=== PATIENT | male | born 1955 | race Caucasian/White ===

== ENCOUNTER 2018-01-06 08:33 | Day surgery (SDC) | payer BC, OTHER ==
[2018-01-06] MEDS ORDERED: CEFAZOLIN/SWI 1gm 1 GM/10 ML SYR ONE (08:57)
[2018-01-06] MEDS ORDERED: NA CHLORIDE 0.9% 1,000 ML ONE (08:57)
[2018-01-06 09:07] LABS: Absolute Lymphocytes (CBC) 1.3 K/uL (0.7-4.9); Absolute Monocytes 1.7 K/uL (0.1-1.3); Absolute Neutrophil 8.1 K/uL (1.8-8.0); Basophils % 0.3 % (0-1.3); Eosinophils % 0.3 % (0-4.4); Hematocrit 44.9 % (39.6-49.0); Lymphocytes % 11.9 % (15.3-44.8); MCV 99.5 fL (80-100); MPV 8.1 fL (7.6-11.3); Monocytes % 15.4 % (3.3-12.3); Potassium 4.4 mmol/L (3.5-5.1); RBC Red Blood Cell Count 4.51 M/uL (4.33-5.43)
--- NOTE | 2018-01-06 09:07 | RAD REPORT ---
EXAM DESCRIPTION: RAD - Chest Pa And Lat (2 Views) - 01/06/2018 8:59 am CLINICAL HISTORY: pre op Chest pain. COMPARISON: CHEST PA AND LAT 2 VIEW dated 04/12/2008 FINDINGS: The lungs are clear. The heart is normal in size. No displaced fractures. IMPRESSION: No acute or concerning finding suspected.
[2018-01-06] MEDS ORDERED: PROPOFOL 200 MG/20 ML VIAL IV ONE (09:35)
[2018-01-06] MEDS ORDERED: FENTANYL CITR 100 MCG/2 ML ONE ×3 (09:36→10:18)
[2018-01-06] MEDS ORDERED: MIDAZOLAM HCL 2 MG/2 ML INJ ONE (09:36)
[2018-01-06] MEDS ORDERED: LIDOCAINE 2% MPF 5 ML VIAL ONE (09:36)
[2018-01-06] MEDS ORDERED: BUPIVACAINE 0.5% PF 10 ML VIAL ONE (09:54)
[2018-01-06] MEDS ORDERED: ONDANSETRON HCL 40 MG/20 ML VIAL ONE (10:18)
--- NOTE | 2018-01-06 10:43 | P.BOP ---
Preoperative diagnosis: cellulitis. large abscess post neck infected subQ mass, DM Postoperative diagnosis: same Primary procedure: excisional bx of infected subQ mass with large abscess [id number] Estimated blood loss: <10cc Specimen: culture, devitalized tissue Findings: complex abscess Anesthesia: General Transferred to: Recovery Room Condition: Good
--- NOTE | 2018-01-06 11:00 | EKG ---
Test Date: 2018-01-06 Test Time: 09:01:49 Entertainment Director: IKE MEASUREMENT RESULTS: Intervals: Rate: 97 GA: 150 QRSD: 96 QT: 330 QTc: 419 [place]: P: 12 GA: 150 QRS: 25 T: 47 INTERPRETIVE STATEMENTS: Normal sinus rhythm Normal ECG Compared to ECG 04/12/2008 17:02:55 No significant changes Electronically Signed On 01-06-18 10:59:55 CDT by Deniz Yates
--- NOTE | 2018-01-06 15:46 | OP ---
Date of Procedure: 01/06/2018 Surgeon: Julien Moran MD Preoperative Diagnoses: Cellulitis large abscess posterior neck infected subcutaneous mass, diabetes mellitus, morbid obesity. Postoperative Diagnoses: Cellulitis large abscess posterior neck infected subcutaneous mass, diabete s mellitus, morbid obesity. Procedures: Excisional biopsy of infected subcutaneous mass with incision and drainage of a large ab scess, 10 x 3 x 3 cm. Estimated Blood Loss: Less than 10 cc. Specimen: Culture and devitalized tissue. Finding: Complex abscess. Anesthesia: General plus local. Indications: This is a case of a 62-year-old patient, with an infected large posterior neck area in des with what he thinks was a small cyst in the middle of subcutaneous mass. They came into a lar ge area of fluctuance and cellulitis, deep and tender. The patient fully explained the need for exci sional biopsy of that subcutaneous mass with drainage of this large abscess with benefits, alternativ es, and risks including, but not limited to infection, bleeding, damage to adjacent structures, anest hesia complication, nonhealing wound, OH, and even . He also understands this may not relieve a ny symptoms. He might need more than one surgical intervention. He understands the importance of be ing compliant with antibiotics and dressing changes. He was offered to use home health agencies, but his believes she can do dressing changes. He understands the importance of compliance also wit h diabetes control. He signed a consent. Description Of Procedure: The patient was brought to the operating room, placed in supine position. Anesthesia was done without complication. The patient was placed in lateral decubitus position with proper protection. We have an area of subcutaneous mass right in the skin area, which starting to d rain purulent discharge. We removed that area and that led us into a complex abscess deep inside abo ut 3 cm deep just above the muscle on the posterior neck. It tracked medial. We opened all the locu lations, drained the pus, removed the devitalized tissue. The area was profusely irrigated. Hemosta sis obtained. Local anesthesia was applied, and the area was packed with iodoform quarter of an inch . The patient tolerated the procedure well. The patient was sent to Recovery in stable condition. KENDAL/ANGELITA Voice ID: [id number] Report ID: [id number]
--- NOTE | 2018-01-06 15:46 | DS ---
Date of Discharge: 01/06/2018 Diagnoses: Cellulitis and large abscess with a posterior neck infected subcutaneous mass, diabetes. Procedures: Excision biopsy of infected subcutaneous mass with incision and drainage of a large absc ess. Disposition: Home. Activity: As tolerated. No heavy lifting. Followup: Follow up in my office in 1 week. Call for appointment, but also we encouraged the patien t to come tomorrow to my office to help him in dressing changes if he wants to. Medications: Include Cipro 500 p.o. q.12, Bactrim DS p.o. b.i.d., Vicodin q.4 hours p.r.n. pain, nor mal saline. Discharge Instructions: The patient may take a shower with dressings off tomorrow. TERESA Voice ID: [id number] Report ID: [id number]
== END 2018-01-06 12:12 | disposition home or self-care (01) ==
LOC: OR 08:33
PROVIDERS: ATTEND Surgery
PROC: 0J940ZZ Drainage of Right Neck Subcutaneous Tissue and Fascia, Open Approach (ICD-10-PCS; 2018-01-06)
PROC: 0JB40ZZ Excision of Right Neck Subcutaneous Tissue and Fascia, Open Approach (ICD-10-PCS; principal; 2018-01-06 09:00)
DX: L02.11 Cutaneous abscess of neck (principal); L03.221 Cellulitis of neck; R22.1 Localized swelling, mass and lump, neck; E11.9 Type 2 diabetes mellitus without complications; E66.01 Morbid (severe) obesity due to excess calories; Z68.33 Body mass index [BMI] 33.0-33.9, adult; I10 Essential (primary) hypertension; G47.33 Obstructive sleep apnea (adult) (pediatric)
CPT/HCPCS: 36415; 71046; 80048; 82962; 85025; 87070; 87075; 87077; 87186; 87205; 88304; 93005; J0690; J2250; J2405; J3010; J7030

== ENCOUNTER 2019-04-19 12:13 | Inpatient (IN) | payer OTHER ==
[2019-04-19 12:57] VITALS: BMI 32.3
[2019-04-19] MEDS ORDERED: D50W 25 GM/50 ML SYRINGE/VIAL IV PRN (13:05)
[2019-04-19] MEDS ORDERED: GLUCAGON 1 MG/VIAL IM PRN (13:05)
[2019-04-19 13:11] LABS: Absolute Lymphocytes (CBC) 1.7 K/uL (0.7-4.9); Basophils % 0.7 % (0-1.3); Hematocrit 45.5 % (39.6-49.0); Lymphocytes % 28.7 % (15.3-44.8); MPV 8.4 fL (7.6-11.3); RBC Red Blood Cell Count 4.57 M/uL (4.33-5.43)
[2019-04-19 13:29] LABS: Albumin 3.7 g/dL (3.4-5.0); Bilirubin Total 0.8 mg/dL (0.2-1.0); Potassium 3.9 mmol/L (3.5-5.1); Protein, Total 7.5 g/dL (6.4-8.2)
--- NOTE | 2019-04-19 13:36 | RAD REPORT ---
EXAM DESCRIPTION: RAD - Foot Right 2 View - 04/19/2019 1:27 pm CLINICAL HISTORY: wound Soft tissue wound COMPARISON: No comparisons FINDINGS: Soft tissue swelling is seen along the lateral aspect of the forefoot. No subcutaneous gas is seen. No radiographic finding to indicate osteomyelitis at this time. Large calcaneal spurs.
[2019-04-19] MEDS ORDERED: VANCOMYCIN 2 GM in NA CHLORIDE 0.9% 500 ML IVPB ONE (14:00)
[2019-04-19 15:32] LABS: Urine Appearance CLEAR; Urine Bilirubin NEGATIVE (NEG); Urine Blood NEGATIVE (NEG); Urine Color YELLOW; Urine Glucose 3+ (NEG); Urine Protein NEGATIVE (NEG); Urine Specific Gravity >=1.030 (1.005-1.030); Urine Urobilinogen 0.2 mg/dL (0.2-1.0)
[2019-04-19 15:39] LABS: Urine Bacteria NONE SEEN /HPF (NONE SEEN); Urine Culture Reflex Order NOT NEEDED; Urine RBC NONE SEEN /HPF (NONE SEEN)
[2019-04-19] MEDS ORDERED: CHLORHEXIDINE GLUCO 4% 120 ML TOP SCH (16:00)
[2019-04-19] MEDS: INSULIN -REGULAR HUMAN 50 UNIT/0.5 ML ML SQ SCH ×2 (17:52→20:09)
--- NOTE | 2019-04-19 20:05 | CON ---
Date of Consultation: 04/19/2019 Reason For Consultation: Infected wound, right foot. History Of Present Illness: Patient is a 64-year-old gentleman, who presents with approximately 24 t o 36 hour history of a blister on the right lateral foot. He states that he was wearing a boot yeste rday when his foot was a little swollen and then we took it off 4 to 5 hours later and noticed that noé carter developing, and even saw Dr. Gibson and he was admitted for IV antibiotics as he is a diabetic and high risk for infection. Workup was begun and I was consulted. He is awake, alert. He does hav e diabetic neuropathy. No fever or chills and no purulent discharge. Review of Systems: Otherwise unremarkable. Past Medical History: Significant for diabetes and hypertension. Past Surgical History: Posterior neck incision and drainage of abscess, shoulder surgery, both knee surgery. Allergies: INCLUDE POISON FEROZ. Social History: He denies smoking or drinking. Family History: Significant for coronary artery disease. Physical Examination: Vital Signs: Stable. He is currently afebrile. General: He is awake, alert, and oriented x3. Head and Neck: Cranial nerves 2 through 12 grossly within normal limits. No neck mass. No JVD. Th roat clear. Neck is supple. Chest: Clear. Heart: S1, S2. Abdomen: Soft. Extremities: Palpable dorsalis pedis and posterior tibial pulses. Right foot is slightly edematous. There is surrounding erythema to this approximately 2 cm area of a purulent blister. There is call us on the plantar aspect of the foot. It does not appear involved. Procedure Note: Under sterile conditions, an 11 blade used to unroof the blister. Pus evacuated. C ultures done. The dermis appeared to be intact. There was some ecchymosis underneath it. However, there is no induration and no fluctuance. Assessment: Infected wound, right foot. Recommendations: Patient is a diabetic. I agree with IV vancomycin. We will check the cultures. A djust antibiotics accordingly. [place] local wound care. We will follow him up in the office in c ouple of weeks. His white count is normal. His sugar is 186, therefore he is clinically not septic nor does he require prolonged IV antibiotic therapy at this time. Obviously if his wound worsen, we would make different recommendation, probably longer period of IV antibiotics, but at this time the p atient needs no further surgical intervention. /MODL Voice ID: [id number] Report ID: [id number]
[2019-04-19] MEDS: carvediloL 12.5 MG TAB PO SCH (20:06)
[2019-04-19] MEDS: MUPIROCIN 2% OINT 22GM TUBE TOP SCH (20:06)
[2019-04-19] MEDS ORDERED: HYDROCODONE/APAP 5/325 MG TAB PO PRN (20:26)
[2019-04-19] MEDS ORDERED: ZOLPIDEM TARTRATE 5 MG TABLET PO PRN (20:26)
[2019-04-19] MEDS ORDERED: ATORVASTATIN 10 MG TAB PO SCH (21:00)
[2019-04-20 00:48] VITALS: TEMP 97
[2019-04-20] MEDS ORDERED: VANCOMYCIN 2 GM in NA CHLORIDE 0.9% 500 ML IVPB SCH (02:00)
--- NOTE | 2019-04-20 02:22 | HP ---
Date of Admission: 04/19/2019 Chief Complaint: Pain, swelling, redness of right foot. History Of Present Illness: A 64-year-old male who is a known diabetic on insulin, was brought to [facility] office because of pain, swelling, and redness of the right foot. He was found to have evidence of cellulitis with necrotic and bullous center. In view of his diabetes, the patient is admitted for IV antibiotic therapy. The patient denied any history of trauma. The patient however had evidence of callus of the sole of the foot. Past Medical History: Positive for type 2 diabetes requiring insulin, hypertension, hyperlipidemia, depression, and panic attacks. Family History: Positive for diabetes and hypertension and stroke. Personal History: Currently nonsmoker. Allergies: NO KNOWN DRUG ALLERGIES. Past Surgical History: Positive for knee arthroscopy and debridement of neck. Review of Systems: No chest pain or shortness of breath. Home Medicines: Please refer to the chart. Physical Examination: General: Revealed a 64-year-old male, obese. Vital Signs: Normal. HEENT: Negative. Neck: Supple. JVD negative. Chest: Clear. Heart: Regular. Abdomen: Soft. Extremities: Diffuse area of redness of the right foot with central necrosis and bolus formation. P edal pulse is present. Laboratory Data: White count normal. X-ray of the foot, no evidence of osteomyelitis. Assessment: 1.Diabetic foot infection, right foot. 2.Type 2 diabetes, requiring insulin. 3.Hypertension. 4.Hyperlipidemia. 5.History of anxiety and depression. Plan: The patient is started on a regular medication IV vancomycin. Surgical consult has been done. MAKAYLA/ANGELITA Voice ID: [id number]
[2019-04-20] MEDS ORDERED: GLIMEPIRIDE 2 MG TABLET PO SCH (08:00)
[2019-04-20] MEDS: carvediloL 12.5 MG TAB PO SCH (08:15)
[2019-04-20 08:22] VITALS: BP 141/78
[2019-04-20] MEDS: INSULIN -REGULAR HUMAN 50 UNIT/0.5 ML ML SQ SCH (08:27)
[2019-04-20] MEDS: MUPIROCIN 2% OINT 22GM TUBE TOP SCH (08:29)
[2019-04-20] MEDS ORDERED: BUPROPION HCL XL 150 MG TAB PO SCH (09:00)
[2019-04-20] MEDS ORDERED: VALSARTAN 160 MG TAB PO SCH (09:00)
[2019-04-20] MEDS ORDERED: INSULIN GLARGINE 100 UNITS/ML SQ SCH (09:00)
[2019-04-20] MEDS ORDERED: PIOGLITAZONE 15 MG TAB PO SCH (09:00)
[2019-04-20] MEDS ORDERED: ESCITALOPRAM 20 MG TAB PO SCH (09:00)
--- NOTE | 2019-04-20 14:03 | PN ---
Date of Progress Note: 04/20/2019 Subjective: Patient is awake, alert. No complaint. Objective: Vital Signs: Stable. Afebrile. Skin: Examination of the wound reveals the redness and swelling to be decreased and there is no warm th. There is no purulent discharge. Assessment: Infected wound, right foot. Recommendations: Patient is cleared for discharge on oral antibiotics. Wound care is ordered. Foll ow up in my office in 2 weeks. Call for appointment. ESA/ANGELITA Voice ID: [id number] Report ID: [id number]
--- NOTE | 2019-04-20 18:34 | PN ---
The patient had bedside debridement of his wound. Patient is afebrile. The redness has decreased in size. There is no active oozing. The patient will be discharged on oral antibiotic and he will be followed in the office. His home medications were continued. New antibiotics were clindamycin and B actrim. MAKAYLA/ANGELITA Voice ID: [id number] Report ID: [id number]
== END 2019-04-20 11:09 | disposition home or self-care (01) | DRG 605 ==
LOC: 2ND 12:13
PROVIDERS: ADMIT Internal Medicine; ATTEND Internal Medicine
DX: S91.302A Unspecified open wound, left foot, initial encounter (principal); L08.9 Local infection of the skin and subcutaneous tissue, unspecified; E11.9 Type 2 diabetes mellitus without complications; I10 Essential (primary) hypertension; E78.5 Hyperlipidemia, unspecified; F41.8 Other specified anxiety disorders
CPT/HCPCS: 36415; 80053; 81001; 82947; 85025; 87070; 87077; 87186; 87205; J1815; J7040

== ENCOUNTER 2023-07-07 14:30 | Inpatient (IN) | payer OTHER ==
--- OUTSIDE RECORDS SUMMARY | 2023-07-07 14:35 | XMS REPORT | Continuity of Care Document ---
Author Name Unknown Address [address] [facility] [address] [place] [address] [facility] Address [address] [facility] [address] [place] [address] Care Team Providers Care Technical Rep Name Role Phone Pcp, Patient Does Not Have A Primary Care Physic zeus Team, [facility] Health Maintenance Attending Clinicia n Unavailable VIVIANE ASTUDILLO Attending Clinician Viviane Youssef Attending Clinician [phone] Doctor Unassigned, [place] Attending Clinician U Carla Oglesby MD Attending Clinician [phone] CARLA ANGELA Attending Clinician Agustin Mon, Mike [facility] Main Attending Clinician Morales Chacko PTA Attending Clinician CARLA Oates Admitting Clinician Carla Wilson MD Admitting Clinician [phone] Payers Payer Name Policy Type Policy Number Effective Date Expirati on Date Source Problems Condition Name Condition Details Condition Category Status Onset Date Resolution Date Last Treatment Date Treating Clinician Comments Source Primary osteoarthr itis of right knee Primary osteoarthr itis of right knee Disease Active 2020-04 00:00: 00 Overview: Formattin g of this note might be different from the original. Added automatic ally from request for surgery [id number] [facility] Allergies, Adverse Reactions, Alerts Allergy Name Allergy Type Status Severity Reaction(s) Onset Date Inactive Date Treating Clinician Comments Source NO KNOWN ALLERGIE S Drug Class Active [facility] Social History Social Habit Start Date Stop Date Quantity Comments Source Gender identity [facility] Sexual orientation [facility] History of tobacco use Current smoker [facility] Exposure to SARS-CoV-2 (event) 2022-07-20 00:00:00 2022-07-30 13:57:00 Not sure [facility] History of Social function 2022-07-03 00:00:00 2022-07-03 00:00:00 [facility] Tobacco use and exposure 2021-03-16 00:00:00 2021-03-16 00:00:00 Smokeless tobacco non-user [facility] Sex Assigned At 1955 00:00:00 1955 00:00:00 [facility] Smoking Status Start Date Stop Date Source Ex-smoker 2021-03-16 00:00:00 2021-03-16 00:00:00 [facility] Medications Ordered Medication Name Filled Medication Name Start Date Stop Date Current Medication? Ordering Clinician Indication Dosage Frequency Signature (SIG) Comments Components Source sodium hyaluronate (viscosup) (ORTHOVISC) injection 15 mg 07-30 21:30: 00 07-30 20:33 :00 No [id number] 15mg [facility] sodium hyaluronate (viscosup) (ORTHOVISC) injection 15 mg 07-30 21:30: 00 07-30 20:33 :00 No [id number] 9100 15mg 15 mg, Intra-pierre cular, ONCE, 1 dose, On Fri07/30/22 at 1630, Routine [facility] sodium hyaluronate (viscosup) (ORTHOVISC) injection 15 mg 07-30 21:30: 00 07-30 20:33 :00 No [id number] 9100 15mg [facility] sodium hyaluronate (viscosup) (ORTHOVISC) injection 15 mg 07-30 21:30: 00 07-30 20:33 :00 No [id number] 9100 15mg 15 mg, Intra-pierre cular, ONCE, 1 dose, On Fri07/30/22 at 1630, Routine [facility] sodium hyaluronate (viscosup) (ORTHOVISC) injection 30 mg 2023-0 3-16 19:30: 00 07-11 19:20 :00 No [id number] 30mg [facility] sodium hyaluronate (viscosup) (ORTHOVISC) injection 30 mg 2023-0 3-16 19:30: 00 07-11 19:20 :00 No [id number] 30mg 30 mg, Intra-pierre cular, ONCE, 1 dose, On Fri07/11/22 at 1430, Routine [facility] sodium hyaluronate (viscosup) (ORTHOVISC) injection 30 mg 3-0 3-16 19:30: 00 07-11 19:20 :00 No [id number] 30mg [facility] sodium hyaluronate (viscosup) (ORTHOVISC) injection 30 mg 3-0 -16 19:30: 00 07-11 19:20 :00 No [id number] 30mg 30 mg, Intra-pierre cular, ONCE, 1 dose, On Fri07/11/22 at 1430, Routine [facility] sodium hyaluronate (viscosup) (ORTHOVISC) injection 30 mg 2023-0 3-08 16:00: 00 07-03 15:50 :00 No [id number] 30mg [facility] sodium hyaluronate (viscosup) (ORTHOVISC) injection 30 mg 2023-0 3-08 16:00: 00 07-03 15:50 :00 No [id number] 30mg 30 mg, Intra-pierre cular, ONCE, 1 dose, On Fri07/03/22 at 1000, Routine [facility] sodium hyaluronate (viscosup) (ORTHOVISC) injection 30 mg 2023-0 3-08 16:00: 00 07-03 15:50 :00 No [id number] 9109 30mg [facility] sodium hyaluronate (viscosup) (ORTHOVISC) injection 30 mg 2023-0 3-08 16:00: 00 07-03 15:50 :00 No [id number] 9109 30mg 30 mg, Intra-pierre cular, ONCE, 1 dose, On Fri07/03/22 at 1000, Routine [facility] sodium hyaluronate (viscosup) (ORTHOVISC) injection 30 mg 12-06 15:00: 00 12-06 14:52 :00 No [id number] 9109 30mg [facility] sodium hyaluronate (viscosup) (ORTHOVISC) injection 30 mg 12-06 15:00: 00 12-06 14:52 :00 No [id number] 9109 30mg 30 mg, Intra-pierre cular, ONCE, 1 dose, On Fri12/06/21 at 1000, Routine [facility] acetaminoph en-codeine (TYLENOL-CO DEINE #3) 300-30 mg tablet 2020-04 00:00: 00 Yes 4647 2{tbl} Take 2 tablets by mouth every 4 (four) hours as needed for Pain (scale 4-6) or Pain (scale 7-10). Ind[facility]: [facility]-0.5 mg tablet 2020-04 00:00: 00 Yes 4647 1{tbl} Take 1 tablet by mouth every 4 (four) hours as needed for Pain. Indication s: acute pain [facility] acetaminoph en-codeine (TYLENOL-CO DEINE #3) 300-30 mg tablet 2020-04 00:00: 00 Yes 4647 2{tbl} Take 2 tablets by mouth every 4 (four) hours as needed for Pain (scale 4-6) or Pain (scale 7-10). Indication s: [facility] pent[facility] -naloxone 50-0.5 mg tablet 2020-04 00:00: 00 Yes 4647 1{tbl} Take 1 tablet by mouth every 4 (four) hours as needed for Pain. Indication s: acute pain [facility] acetaminoph en-codeine (TYLENOL-CO DEINE #3) 300-30 mg tablet 2020-04 00:00: 00 Yes 4647 2{tbl} Take 2 tablets by mouth every 4 (four) hours as needed for Pain (scale 4-6) or Pain (scale 7-10). Indication s: acute pain [facility] pentazocine -naloxone 50-0.5 mg tablet 2020-04 00:00: 00 Yes 4647 1{tbl} Take 1 tablet by mouth every 4 (four) hours as needed for Pain. Indication s: acute pain [facility] acetaminoph en-codeine (TYLENOL-CO DEINE #3) 300-30 mg tablet 2020-04 00:00: 00 Yes 4647 2{tbl} Take 2 tablets by mouth every 4 (four) hours as needed for Pain (scale 4-6) or Pain (scale 7-10). Indication s: acute pain [facility] pentazocine -naloxone 50-0.5 mg tablet 2020-04 00:00: 00 Yes 4647 1{tbl} Take 1 tablet by mouth every 4 (four) hours as needed for Pain. Indication s: acute pain [facility] acetaminoph en-codeine (TYLENOL-CO DEINE #3) 300-30 mg tablet 2020-04 00:00: 00 Yes 4647 2{tbl} Take 2 tablets by mouth every 4 (four) hours as needed for Pain (scale 4-6) or Pain (scale 7-10). Indication s: acute pain [facility] pentazocine -naloxone 50-0.5 mg tablet 2020-04 00:00: 00 Yes 4647 1{tbl} Take 1 tablet by mouth every 4 (four) hours as needed for Pain. Indication s: acute pain [facility] acetaminoph en-codeine (TYLENOL-CO DEINE #3) 300-30 mg tablet 2020-04 00:00: 00 Yes 4647 2{tbl} Take 2 tablets by mouth every 4 (four) hours as needed for Pain (scale 4-6) or Pain (scale 7-10). Indication s: acute pain [facility] pentazocine -naloxone 50-0.5 mg tablet 2020-04 00:00: 00 Yes 4647 1{tbl} Take 1 tablet by mouth every 4 (four) hours as needed for Pain. Indication s: acute pain [facility] acetaminoph en-codeine (TYLENOL-CO DEINE #3) 300-30 mg tablet 2020-04 00:00: 00 Yes 4647 2{tbl} Take 2 tablets by mouth every 4 (four) hours as needed for Pain (scale 4-6) or Pain (scale 7-10). Indication s: acute pain [facility] pentazocine -naloxone 50-0.5 mg tablet 2020-04 00:00: 00 Yes 4647 1{tbl} Take 1 tablet by mouth every 4 (four) hours as needed for Pain. Indication s: acute pain [facility] acetaminoph en-codeine (TYLENOL-CO DEINE #3) 300-30 mg tablet 2020-04 00:00: 00 Yes 4647 2{tbl} Take 2 tablets by mouth every 4 (four) hours as needed for Pain (scale 4-6) or Pain (scale 7-10). Indication s: acute pain [facility] pentazocine -naloxone 50-0.5 mg tablet 2020-04 00:00: 00 Yes 4647 1{tbl} Take 1 tablet by mouth every 4 (four) hours as needed for Pain. Indication s: acute pain [facility] acetaminoph en-codeine (TYLENOL-CO DEINE #3) 300-30 mg tablet 2020-04 00:00: 00 Yes 4647 2{tbl} Take 2 tablets by mouth every 4 (four) hours as needed for Pain (scale 4-6) or Pain (scale 7-10). Indication s: acute pain [facility] pentazocine -naloxone 50-0.5 mg tablet 2020-04 00:00: 00 Yes 4647 1{tbl} Take 1 tablet by mouth every 4 (four) hours as needed for Pain. Indication s: acute pain [facility] acetaminoph en-codeine (TYLENOL-CO DEINE #3) 300-30 mg tablet 2020-04 00:00: 00 Yes 4647 2{tbl} Take 2 tablets by mouth every 4 (four) hours as needed for Pain (scale 4-6) or Pain (scale 7-10). Indication s: acute pain [facility] pentazocine -naloxone 50-0.5 mg tablet 2020-04 00:00: 00 Yes 4647 1{tbl} Take 1 tablet by mouth every 4 (four) hours as needed for Pain. Indication s: acute pain [facility] acetaminoph en-codeine (TYLENOL-CO DEINE #3) 300-30 mg tablet 2020-04 00:00: 00 Yes 4647 2{tbl} Take 2 tablets by mouth every 4 (four) hours as needed for Pain (scale 4-6) or Pain (scale 7-10). Indication s: acute pain [facility] pentazocine -naloxone 50-0.5 mg tablet 2020-04 00:00: 00 Yes 4647 1{tbl} Take 1 tablet by mouth every 4 (four) hours as needed for Pain. Indication s: acute pain [facility] acetaminoph en-codeine (TYLENOL-CO DEINE #3) 300-30 mg tablet 2020-04 00:00: 00 Yes 4647 2{tbl} Take 2 tablets by mouth every 4 (four) hours as needed for Pain (scale 4-6) or Pain (scale 7-10). Indication s: acute pain [facility] pentazocine -naloxone 50-0.5 mg tablet 2020-04 00:00: 00 Yes 4647 1{tbl} Take 1 tablet by mouth every 4 (four) hours as needed for Pain. Indication s: acute pain [facility] acetaminoph en-codeine (TYLENOL-CO DEINE #3) 300-30 mg tablet 2020-04 00:00: 00 Yes 4647 2{tbl} Take 2 tablets by mouth every 4 (four) hours as needed for Pain (scale 4-6) or Pain (scale 7-10). Indication s: acute pain [facility] pentazocine -naloxone 50-0.5 mg tablet 2020-04 00:00: 00 Yes 4647 1{tbl} Take 1 tablet by mouth every 4 (four) hours as needed for Pain. Indication s: acute pain [facility] acetaminoph en-codeine (TYLENOL-CO DEINE #3) 300-30 mg tablet 2020-04 00:00: 00 Yes 4647 2{tbl} Take 2 tablets by mouth every 4 (four) hours as needed for Pain (scale 4-6) or Pain (scale 7-10). Indication s: acute pain [facility] pentazocine -naloxone 50-0.5 mg tablet 2020-04 00:00: 00 Yes 4647 1{tbl} Take 1 tablet by mouth every 4 (four) hours as needed for Pain. Indication s: acute pain [facility] acetaminoph en-codeine (TYLENOL-CO DEINE #3) 300-30 mg tablet 2020-04 00:00: 00 Yes 4647 2{tbl} Take 2 tablets by mouth every 4 (four) hours as needed for Pain (scale 4-6) or Pain (scale 7-10). Indication s: acute pain [facility] pentazocine -naloxone 50-0.5 mg tablet 2020-04 00:00: 00 Yes 4647 1{tbl} Take 1 tablet by mouth every 4 (four) hours as needed for Pain. Indication s: acute pain [facility] acetaminoph en-codeine (TYLENOL-CO DEINE #3) 300-30 mg tablet 2020-04 00:00: 00 Yes 4647 2{tbl} Take 2 tablets by mouth every 4 (four) hours as needed for Pain (scale 4-6) or Pain (scale 7-10). Indication s: acute pain [facility] pentazocine -naloxone 50-0.5 mg tablet 2020-04 00:00: 00 Yes 4647 1{tbl} Take 1 tablet by mouth every 4 (four) hours as needed for Pain. Indication s: acute pain [facility] acetaminoph en-codeine (TYLENOL-CO DEINE #3) 300-30 mg tablet 2020-04 00:00: 00 Yes 4647 2{tbl} Take 2 tablets by mouth every 4 (four) hours as needed for Pain (scale 4-6) or Pain (scale 7-10). Indication s: acute pain [facility] pentazocine -naloxone 50-0.5 mg tablet 2020-04 00:00: 00 Yes 4647 1{tbl} Take 1 tablet by mouth every 4 (four) hours as needed for Pain. Indication s: acute pain [facility] carvediloL 6.25 mg tablet 2020-04 19:46: 34 Yes 6.25mg Take 6.25 mg by mouth 2 (two) times daily with meals. [facility] glimepiride 4 mg tablet 2020-04 19:46: 34 Yes 4mg Take 4 mg by mouth daily with breakfast. [facility] carvediloL 6.25 mg tablet 2020-04 19:46: 34 Yes 6.25mg Take 6.25 mg by mouth 2 (two) times daily with meals. [facility] glimepiride 4 mg tablet 2020-04 19:46: 34 Yes 4mg Take 4 mg by mouth daily with breakfast. [facility] carvediloL 6.25 mg tablet 2020-04 19:46: 34 Yes 6.25mg Take 6.25 mg by mouth 2 (two) times daily with meals. [facility] glimepiride 4 mg tablet 2020-04 19:46: 34 Yes 4mg Take 4 mg by mouth daily with breakfast. [facility] carvediloL 6.25 mg tablet 2020-04 19:46: 34 Yes 6.25mg Take 6.25 mg by mouth 2 (two) times daily with meals. [facility] glimepiride 4 mg tablet 2020-04 19:46: 34 Yes 4mg Take 4 mg by mouth daily with breakfast. [facility] carvediloL 6.25 mg tablet 2020-04 19:46: 34 Yes 6.25mg Take 6.25 mg by mouth 2 (two) times daily with meals. [facility] glimepiride 4 mg tablet 2020-04 19:46: 34 Yes 4mg Take 4 mg by mouth daily with breakfast. [facility] carvediloL 6.25 mg tablet 2020-04 19:46: 34 Yes 6.25mg Take 6.25 mg by mouth 2 (two) times daily with meals. [facility] glimepiride 4 mg tablet 2020-04 19:46: 34 Yes 4mg Take 4 mg by mouth daily with breakfast. [facility] carvediloL 6.25 mg tablet 2020-04 19:46: 34 Yes 6.25mg Take 6.25 mg by mouth 2 (two) times daily with meals. [facility] glimepiride 4 mg tablet 2020-04 19:46: 34 Yes 4mg Take 4 mg by mouth daily with breakfast. [facility] carvediloL 6.25 mg tablet 2020-04 19:46: 34 Yes 6.25mg Take 6.25 mg by mouth 2 (two) times daily with meals. [facility] glimepiride 4 mg tablet 2020-04 19:46: 34 Yes 4mg Take 4 mg by mouth daily with breakfast. [facility] carvediloL 6.25 mg tablet 2020-04 19:46: 34 Yes 6.25mg Take 6.25 mg by mouth 2 (two) times daily with meals. [facility] glimepiride 4 mg tablet 2020-04 19:46: 34 Yes 4mg Take 4 mg by mouth daily with breakfast. [facility] carvediloL 6.25 mg tablet 2020-04 19:46: 34 Yes 6.25mg Take 6.25 mg by mouth 2 (two) times daily with meals. [facility] glimepiride 4 mg tablet 2020-04 19:46: 34 Yes 4mg Take 4 mg by mouth daily with breakfast. [facility] carvediloL 6.25 mg tablet 2020-04 19:46: 34 Yes 6.25mg Take 6.25 mg by mouth 2 (two) times daily with meals. [facility] glimepiride 4 mg tablet 2020-04 19:46: 34 Yes 4mg Take 4 mg by mouth daily with breakfast. [facility] carvediloL 6.25 mg tablet 2020-04 19:46: 34 Yes 6.25mg Take 6.25 mg by mouth 2 (two) times daily with meals. [facility] glimepiride 4 mg tablet 2020-04 19:46: 34 Yes 4mg Take 4 mg by mouth daily with breakfast. [facility] carvediloL 6.25 mg tablet 2020-04 19:46: 34 Yes 6.25mg Take 6.25 mg by mouth 2 (two) times daily with meals. [facility] glimepiride 4 mg tablet 2020-04 19:46: 34 Yes 4mg Take 4 mg by mouth daily with breakfast. [facility] carvediloL 6.25 mg tablet 2020-04 19:46: 34 Yes 6.25mg Take 6.25 mg by mouth 2 (two) times daily with meals. [facility] glimepiride 4 mg tablet 2020-04 19:46: 34 Yes 4mg Take 4 mg by mouth daily with breakfast. [facility] carvediloL 6.25 mg tablet 2020-04 19:46: 34 Yes 6.25mg Take 6.25 mg by mouth 2 (two) times daily with meals. [facility] glimepiride 4 mg tablet 2020-04 19:46: 34 Yes 4mg Take 4 mg by mouth daily with breakfast. [facility] carvediloL 6.25 mg tablet 2020-04 19:46: 34 Yes 6.25mg Take 6.25 mg by mouth 2 (two) times daily with meals. [facility] glimepiride 4 mg tablet 2020-04 19:46: 34 Yes 4mg Take 4 mg by mouth daily with breakfast. [facility] carvediloL 6.25 mg tablet 2020-04 19:46: 34 Yes 6.25mg Take 6.25 mg by mouth 2 (two) times daily with meals. [facility] glimepiride 4 mg tablet 2020-04 19:46: 34 Yes 4mg Take 4 mg by mouth daily with breakfast. [facility] acetaminoph en-codeine (TYLENOL-CO DEINE #3) 300-30 mg tablet 2020-04 00:00: 00 Yes 4647 2{tbl} Take 2 tablets by mouth every 4 (four) hours as needed for Pain (scale 4-6) or Pain (scale 7-10). Indication s: acute pain [facility] acetaminoph en-codeine (TYLENOL-CO DEINE #3) 300-30 mg tablet 2020-04 00:00: 00 Yes 4647 2{tbl} Take 2 tablets by mouth every 4 (four) hours as needed for Pain (scale 4-6) or Pain (scale 7-10). Indication s: acute pain [facility] acetaminoph en-codeine (TYLENOL-CO DEINE #3) 300-30 mg tablet 2020-04 00:00: 00 Yes 4647 2{tbl} Take 2 tablets by mouth every 4 (four) hours as needed for Pain (scale 4-6) or Pain (scale 7-10). Indication s: acute pain [facility] acetaminoph en-codeine (TYLENOL-CO DEINE #3) 300-30 mg tablet 2020-04 00:00: 00 Yes 4647 2{tbl} Take 2 tablets by mouth every 4 (four) hours as needed for Pain (scale 4-6) or Pain (scale 7-10). Indication s: acute pain [facility] acetaminoph en-codeine (TYLENOL-CO DEINE #3) 300-30 mg tablet 2020-04 00:00: 00 Yes 4647 2{tbl} Take 2 tablets by mouth every 4 (four) hours as needed for Pain (scale 4-6) or Pain (scale 7-10). Indication s: acute pain [facility] acetaminoph en-codeine (TYLENOL-CO DEINE #3) 300-30 mg tablet 2020-04 00:00: 00 Yes 4647 2{tbl} Take 2 tablets by mouth every 4 (four) hours as needed for Pain (scale 4-6) or Pain (scale 7-10). Indication s: acute pain [facility] acetaminoph en-codeine (TYLENOL-CO DEINE #3) 300-30 mg tablet 2020-04 00:00: 00 Yes 4647 2{tbl} Take 2 tablets by mouth every 4 (four) hours as needed for Pain (scale 4-6) or Pain (scale 7-10). Indication s: acute pain [facility] acetaminoph en-codeine (TYLENOL-CO DEINE #3) 300-30 mg tablet 2020-04 00:00: 00 Yes 4647 2{tbl} Take 2 tablets by mouth every 4 (four) hours as needed for Pain (scale 4-6) or Pain (scale 7-10). Indication s: acute pain [facility] acetaminoph en-codeine (TYLENOL-CO DEINE #3) 300-30 mg tablet 2020-04 00:00: 00 Yes 4647 2{tbl} Take 2 tablets by mouth every 4 (four) hours as needed for Pain (scale 4-6) or Pain (scale 7-10). Indication s: acute pain [facility] acetaminoph en-codeine (TYLENOL-CO DEINE #3) 300-30 mg tablet 2020-04 00:00: 00 Yes 4647 2{tbl} Take 2 tablets by mouth every 4 (four) hours as needed for Pain (scale 4-6) or Pain (scale 7-10). Indication s: acute pain [facility] acetaminoph en-codeine (TYLENOL-CO DEINE #3) 300-30 mg tablet 2020-04 00:00: 00 Yes 4647 2{tbl} Take 2 tablets by mouth every 4 (four) hours as needed for Pain (scale 4-6) or Pain (scale 7-10). Indication s: acute pain [facility] acetaminoph en-codeine (TYLENOL-CO DEINE #3) 300-30 mg tablet 2020-04 00:00: 00 Yes 4647 2{tbl} Take 2 tablets by mouth every 4 (four) hours as needed for Pain (scale 4-6) or Pain (scale 7-10). Indication s: acute pain [facility] acetaminoph en-codeine (TYLENOL-CO DEINE #3) 300-30 mg tablet 2020-04 00:00: 00 Yes 4647 2{tbl} Take 2 tablets by mouth every 4 (four) hours as needed for Pain (scale 4-6) or Pain (scale 7-10). Indication s: acute pain [facility] acetaminoph en-codeine (TYLENOL-CO DEINE #3) 300-30 mg tablet 2020-04 00:00: 00 Yes 4647 2{tbl} Take 2 tablets by mouth every 4 (four) hours as needed for Pain (scale 4-6) or Pain (scale 7-10). Indication s: acute pain [facility] acetaminoph en-codeine (TYLENOL-CO DEINE #3) 300-30 mg tablet 2020-04 00:00: 00 Yes 4647 2{tbl} Take 2 tablets by mouth every 4 (four) hours as needed for Pain (scale 4-6) or Pain (scale 7-10). Indication s: acute pain [facility] acetaminoph en-codeine (TYLENOL-CO DEINE #3) 300-30 mg tablet 2020-04 00:00: 00 Yes 4647 2{tbl} Take 2 tablets by mouth every 4 (four) hours as needed for Pain (scale 4-6) or Pain (scale 7-10). Indication s: acute pain [facility] acetaminoph en-codeine (TYLENOL-CO DEINE #3) 300-30 mg tablet 2020-04 00:00: 00 Yes 4647 2{tbl} Take 2 tablets by mouth every 4 (four) hours as needed for Pain (scale 4-6) or Pain (scale 7-10). Indication s: acute pain [facility] buPROPion XL 300 mg 24 hr tablet 2020-04 0-07 00:00: 00 Yes [facility] escitalopra m oxalate 20 mg tablet 2020-04 0- 00:00: 00 Yes [facility] XIGDUO XR 10-1,000 mg TBph 2020-04 0-07 00:00: 00 Yes [facility] buPROPion XL 300 mg 24 hr tablet 2020-04 0- 00:00: 00 Yes [facility] escitalopra m oxalate 20 mg tablet 2020-04 0- 00:00: 00 Yes [facility] XIGDUO XR 10-1,000 mg TBp 2020-04 0-07 00:00: 00 Yes [facility] buPROPion XL 300 mg 24 hr tablet 2020-04 0-07 00:00: 00 Yes [facility] escitalopra m oxalate 20 mg tablet 2020-04 0-07 00:00: 00 Yes [facility] XIGDUO XR 10-1,000 mg TBph 2020-04 0-07 00:00: 00 Yes [facility] buPROPion XL 300 mg 24 hr tablet 2020-04 0-07 00:00: 00 Yes [facility] escitalopra m oxalate 20 mg tablet 2020-04 0-07 00:00: 00 Yes [facility] XIGDUO XR 10-1,000 mg TBph 2020-04 0-07 00:00: 00 Yes [facility] buPROPion XL 300 mg 24 hr tablet 2020-04 0-07 00:00: 00 Yes [facility] escitalopra m oxalate 20 mg tablet 2020-04 0-07 00:00: 00 Yes [facility] XIGDUO XR 10-1,000 mg TBph 2020-04 0-07 00:00: 00 Yes [facility] buPROPion XL 300 mg 24 hr tablet 2020-04 0-07 00:00: 00 Yes [facility] escitalopra m oxalate 20 mg tablet 2020-04 0-07 00:00: 00 Yes [facility] XIGDUO XR 10-1,000 mg TBph 2020-04 0-07 00:00: 00 Yes [facility] buPROPion XL 300 mg 24 hr tablet 2020-04 0-07 00:00: 00 Yes [facility] escitalopra m oxalate 20 mg tablet 2020-04 0-07 00:00: 00 Yes [facility] XIGDUO XR 10-1,000 mg TBph 2020-04 0-07 00:00: 00 Yes [facility] buPROPion XL 300 mg 24 hr tablet 2020-04 0-07 00:00: 00 Yes [facility] [facility] escitalopra m oxalate 20 mg tablet 2020-04 0-07 00:00: 00 Yes [facility] XIGDUO XR 10-1,000 mg TBph 2020-04 0-07 00:00: 00 Yes [facility] buPROPion XL 300 mg 24 hr tablet 2020-04 0-07 00:00: 00 Yes [facility] escitalopra m oxalate 20 mg tablet 2020-04 0-07 00:00: 00 Yes [facility] XIGDUO XR 10-1,000 mg TBph 2020-04 0-07 00:00: 00 Yes [facility] buPROPion XL 300 mg 24 hr tablet 2020-04 0-07 00:00: 00 Yes [facility] escitalopra m oxalate 20 mg tablet 2020-04 0-07 00:00: 00 Yes [facility] XIGDUO XR 10-1,000 mg TBph 2020-04 0-07 00:00: 00 Yes [facility] buPROPion XL 300 mg 24 hr tablet 2020-04 0-07 00:00: 00 Yes [facility] escitalopra m oxalate 20 mg tablet 2020-04 0-07 00:00: 00 Yes [facility] XIGDUO XR 10-1,000 mg TBph 2020-04 0-07 00:00: 00 Yes [facility] buPROPion XL 300 mg 24 hr tablet 2020-04 0-07 00:00: 00 Yes [facility] escitalopra m oxalate 20 mg tablet 2020-04 0-07 00:00: 00 Yes [facility] XIGDUO XR 10-1,000 mg TBph 2020-04 0-07 00:00: 00 Yes [facility] buPROPion XL 300 mg 24 hr tablet 2020-04 0-07 00:00: 00 Yes [facility] escitalopra m oxalate 20 mg tablet 2020-04 0-07 00:00: 00 Yes [facility] XIGDUO XR 10-1,000 mg TBp 2020-04 0-07 00:00: 00 Yes [facility] buPROPion XL 300 mg 24 hr tablet 2020-04 0-07 00:00: 00 Yes [facility] escitalopra m oxalate 20 mg tablet 2020-04 0-07 00:00: 00 Yes [facility] XIGDUO XR 10-1,000 mg TBp 2020-04 0-07 00:00: 00 Yes [facility] buPROPion XL 300 mg 24 hr tablet 2020-04 0-07 00:00: 00 Yes [facility] escitalopra m oxalate 20 mg tablet 2020-04 0-07 00:00: 00 Yes [facility] XIGDUO XR 10-1,000 mg TBph 2020-04 0-07 00:00: 00 Yes [facility] buPROPion XL 300 mg 24 hr tablet 2020-04 0-07 00:00: 00 Yes [facility] escitalopra m oxalate 20 mg tablet 2020-04 0-07 00:00: 00 Yes [facility] XIGDUO XR 10-1,000 mg TBph 2020-04 0-07 00:00: 00 Yes [facility] buPROPion XL 300 mg 24 hr tablet 2020-04 00:00: 00 Yes [facility] escitalopra m oxalate 20 mg tablet 2020-04 00:00: 00 Yes [facility] XIGDUO XR 10-1,000 mg TBp 2020-04 0 00:00: 00 Yes [facility] olmesartan- hydrochloro thiazide 40-12.5 mg per tablet 0 01-03 00:00: 00 Yes [facility] olmesartan- hydrochloro thiazide 40-12.5 mg per tablet 0 01-03 00:00: 00 Yes [facility] olmesartan- hydrochloro thiazide 40-12.5 mg per tablet 0 01-03 00:00: 00 Yes [facility] olmesartan- hydrochloro thiazide 40-12.5 mg per tablet 0 01-03 00:00: 00 Yes [facility] olmesartan- hydrochloro thiazide 40-12.5 mg per tablet 0 01-03 00:00: 00 Yes [facility] olmesartan- hydrochloro thiazide 40-12.5 mg per tablet 0 01-03 00:00: 00 Yes [facility] olmesartan- hydrochloro thiazide 40-12.5 mg per tablet 0 01-03 00:00: 00 Yes [facility] olmesartan- hydrochloro thiazide 40-12.5 mg per tablet 0 01-03 00:00: 00 Yes [facility] olmesartan- hydrochloro thiazide 40-12.5 mg per tablet 0 01-03 00:00: 00 Yes [facility] olmesartan- hydrochloro thiazide 40-12.5 mg per tablet 0 01-03 00:00: 00 Yes [facility] olmesartan- hydrochloro thiazide 40-12.5 mg per tablet 0 01-03 00:00: 00 Yes [facility] olmesartan- hydrochloro thiazide 40-12.5 mg per tablet 0 01-03 00:00: 00 Yes [facility] olmesartan- hydrochloro thiazide 40-12.5 mg per tablet 0 01-03 00:00: 00 Yes [facility] olmesartan- hydrochloro thiazide 40-12.5 mg per tablet 0 01-03 00:00: 00 Yes [facility] olmesartan- hydrochloro thiazide 40-12.5 mg per tablet 0 01-03 00:00: 00 Yes [facility] olmesartan- hydrochloro thiazide 40-12.5 mg per tablet 0 01-03 00:00: 00 Yes [facility] olmesartan- hydrochloro thiazide 40-12.5 mg per tablet 0 01-03 00:00: 00 Yes [facility] atorvastati n 10 mg tablet 0 12-04 00:00: 00 Yes [facility] atorvastati n 10 mg tablet 0 12-04 00:00: 00 Yes [facility] atorvastati n 10 mg tablet 0 12-04 00:00: 00 Yes [facility] atorvastati n 10 mg tablet 0 12-04 00:00: 00 Yes [facility] atorvastati n 10 mg tablet 0 12-04 00:00: 00 Yes [facility] atorvastati n 10 mg tablet 0 12-04 00:00: 00 Yes [facility] atorvastati n 10 mg tablet 0 12-04 00:00: 00 Yes [facility] atorvastati n 10 mg tablet 2020-0 12-04 00:00: 00 Yes [facility] atorvastati n 10 mg tablet 0 12-04 00:00: 00 Yes [facility] atorvastati n 10 mg tablet 0 8 00:00: 00 Yes [facility] atorvastati n 10 mg tablet 0 12-04 00:00: 00 Yes [facility] atorvastati n 10 mg tablet 0 - 00:00: 00 Yes [facility] atorvastati n 10 mg tablet 0 12-04 00:00: 00 Yes [facility] atorvastati n 10 mg tablet 0 12-04 00:00: 00 Yes [facility] atorvastati n 10 mg tablet 0 12-04 00:00: [address] Yes [facility] atorvastati n 10 mg tablet 0 12-04 00:00: 00 Yes [facility] atorvastati n 10 mg tablet 0 12-04 00:00: 00 Yes [facility] Immunizations Ordered Immunization Name Filled Immunization Name Date Status Comments Source SARS-COV-2 COVID-19 MODERNA VACCINE 2021-03-06 00:00:00 Completed [facility] SARS-COV-2 COVID-19 MODERNA 12+ YRS VACCINE 2021-03-06 00:00:00 Completed [facility] SARS-COV-2 COVID-19 MODERNA 12+ YRS VACCINE 2021-03-06 00:00:00 Completed [facility] SARS-COV-2 COVID-19 MODERNA 12+ YRS VACCINE 2021-03-06 00:00:00 Completed [facility] SARS-COV-2 COVID-19 MODERNA 12+ YRS VACCINE 2021-03-06 00:00:00 Completed [facility] SARS-COV-2 COVID-19 MODERNA 12+ YRS VACCINE 2021-03-06 00:00:00 Completed [facility] SARS-COV-2 COVID-19 MODERNA 12+ YRS VACCINE 2021-03-06 00:00:00 Completed [facility] SARS-COV-2 COVID-19 MODERNA 12+ YRS VACCINE 2021-03-06 00:00:00 Completed [facility] SARS-COV-2 COVID-19 MODERNA 12+ YRS VACCINE 2021-03-06 00:00:00 Completed [facility] SARS-COV-2 COVID-19 MODERNA 12+ YRS VACCINE 2021-03-06 00:00:00 Completed [facility] SARS-COV-2 COVID-19 MODERNA 12+ YRS VACCINE 2021-03-06 00:00:00 Completed [facility] SARS-COV-2 COVID-19 MODERNA 12+ YRS VACCINE 2021-03-06 00:00:00 Completed [facility] SARS-COV-2 COVID-19 MODERNA 12+ YRS VACCINE 2021-03-06 00:00:00 Completed [facility] SARS-COV-2 COVID-19 MODERNA 12+ YRS VACCINE 2021-03-06 00:00:00 Completed [facility] SARS-COV-2 COVID-19 MODERNA 12+ YRS VACCINE 2021-03-06 00:00:00 Completed [facility] SARS-COV-2 COVID-19 MODERNA 12+ YRS VACCINE 2021-03-06 00:00:00 Completed [facility] SARS-COV-2 COVID-19 MODERNA VACCINE 2020-08-03 00:00:00 Completed [facility] SARS-COV-2 COVID-19 MODERNA 12+ YRS VACCINE 2020-08-03 00:00:00 Completed [facility] SARS-COV-2 COVID-19 MODERNA 12+ YRS VACCINE 2020-08-03 00:00:00 Completed [facility] SARS-COV-2 COVID-19 MODERNA 12+ YRS VACCINE 2020-08-03 00:00:00 Completed [facility] SARS-COV-2 COVID-19 MODERNA 12+ YRS VACCINE 2020-08-03 00:00:00 Completed [facility] SARS-COV-2 COVID-19 MODERNA 12+ YRS VACCINE 2020-08-03 00:00:00 Completed [facility] SARS-COV-2 COVID-19 MODERNA 12+ YRS VACCINE 2020-08-03 00:00:00 Completed [facility] SARS-COV-2 COVID-19 MODERNA 12+ YRS VACCINE 2020-08-03 00:00:00 Completed [facility] SARS-COV-2 COVID-19 MODERNA 12+ YRS VACCINE 2020-08-03 00:00:00 Completed [facility] SARS-COV-2 COVID-19 MODERNA 12+ YRS VACCINE 2020-08-03 00:00:00 Completed [facility] SARS-COV-2 COVID-19 MODERNA 12+ YRS VACCINE 2020-08-03 00:00:00 Completed [facility] SARS-COV-2 COVID-19 MODERNA 12+ YRS VACCINE 2020-08-03 00:00:00 Completed [facility] SARS-COV-2 COVID-19 MODERNA 12+ YRS VACCINE 2020-08-03 00:00:00 Completed [facility] SARS-COV-2 COVID-19 MODERNA 12+ YRS VACCINE 2020-08-03 00:00:00 Completed [facility] SARS-COV-2 COVID-19 MODERNA 12+ YRS VACCINE 2020-08-03 00:00:00 Completed [facility] SARS-COV-2 COVID-19 MODERNA 12+ YRS VACCINE 2020-08-03 00:00:00 Completed [facility] SARS-COV-2 COVID-19 MODERNA VACCINE 2020-07-06 00:00:00 Completed [facility] SARS-COV-2 COVID-19 MODERNA 12+ YRS VACCINE 2020-07-06 00:00:00 Completed [facility] SARS-COV-2 COVID-19 MODERNA 12+ YRS VACCINE 2020-07-06 00:00:00 Completed [facility] SARS-COV-2 COVID-19 MODERNA 12+ YRS VACCINE 2020-07-06 00:00:00 Completed [facility] SARS-COV-2 COVID-19 MODERNA 12+ YRS VACCINE 2020-07-06 00:00:00 Completed [facility] SARS-COV-2 COVID-19 MODERNA 12+ YRS VACCINE 2020-07-06 00:00:00 Completed [facility] SARS-COV-2 COVID-19 MODERNA 12+ YRS VACCINE 2020-07-06 00:00:00 Completed [facility] SARS-COV-2 COVID-19 MODERNA 12+ YRS VACCINE 2020-07-06 00:00:00 Completed [facility] SARS-COV-2 COVID-19 MODERNA 12+ YRS VACCINE 2020-07-06 00:00:00 Completed [facility] SARS-COV-2 COVID-19 MODERNA 12+ YRS VACCINE 2020-07-06 00:00:00 Completed [facility] SARS-COV-2 COVID-19 MODERNA 12+ YRS VACCINE 2020-07-06 00:00:00 Completed [facility] SARS-COV-2 COVID-19 MODERNA 12+ YRS VACCINE 2020-07-06 00:00:00 Completed [facility] SARS-COV-2 COVID-19 MODERNA 12+ YRS VACCINE 2020-07-06 00:00:00 Completed [facility] SARS-COV-2 COVID-19 MODERNA 12+ YRS VACCINE 2020-07-06 00:00:00 Completed [facility] SARS-COV-2 COVID-19 MODERNA 12+ YRS VACCINE 2020-07-06 00:00:00 Completed [facility] SARS-COV-2 COVID-19 MODERNA 12+ YRS VACCINE 2020-07-06 00:00:00 Completed [facility] SARS-COV-2 COVID-19 MODERNA 12+ YRS VACCINE Unknown Completed [facility] SARS-COV-2 COVID-19 MODERNA 12+ YRS VACCINE Unknown Completed [facility] SARS-COV-2 COVID-19 MODERNA 12+ YRS VACCINE Unknown Completed [facility] Vital Signs Vital Name Observation Time Observation Value Comments S ource Systolic blood pressure 2022-07-30 19:08:00 133 mm[Hg] [facility] Diastolic blood pressure 2022-07-30 19:08:00 81 mm[Hg] [facility] Heart rate 2022-07-30 19:08:00 67 [facility] 2022-07-30 19:08:00 193 cm [facility] Body weight 2022-07-30 19:08:00 112.583 kg [facility] BMI 2022-07-30 19:08:00 30.21 kg/m2 [facility] 2022-07-11 19:19:00 193 cm [facility] Body weight 2022-07-11 19:19:00 110.224 kg [facility] BMI 2022-07-11 19:19:00 29.58 kg/m2 [facility] 2022-07-03 15:48:00 193 cm [facility] 2022-07-03 15:48:00 110.224 kg [facility] BMI 2022-07-03 15:48:00 29.58 kg/m2 [facility] Body height 2021-12-06 14:51:00 193 cm [facility] 2021-12-06 14:51:00 110.224 kg [facility] BMI 2021-12-06 14:51:00 29.58 kg/m2 [facility] Procedures Procedure Date / Time Performed Performing Clinician Source [facility] PATIENT FINANCIAL POLICY 2022-07-11 19:13:56 Doctor Unassigned, [place] [facility] ASSIGNMENT OF BENEFITS 2022-06-13 14:09:02 Docto r Unassigned, [place] [facility] AUTHORIZATION FOR RELEASE OF PHI 2021-12-07 05:01:00 Doctor Unassigned, [place] [facility] Encounters Start Date/Time End Date/Time Encounter Type Admission Type Attending Clinicians Care Facility Care Department Encounter ID Source 2023-01-01 00:00:00 2023-01-01 00:00:00 Telephone Team, [facility] 1.2.840.114 350.1.13.10 4.2.7.2.686 [id number] [facility] 2022-07-30 14:00:00 2022-07-30 14:34:59 Outpatient R VIVIANE ASTUDILLO [facility] [id number] [facility] 2022-07-30 14:00:00 2022-07-30 14:34:59 Office Visit Viviane Astudillo [facility] 1.2.840.114 350.1.13.10 4.2.7.2.686 [id number] [facility] 2022-07-16 00:00:00 2022-07-16 00:00:00 [facility] 1..840.114 350.1.13.10 4.2.7.2.686 [id number] [facility] 2022-07-11 14:30:00 2022-07-11 14:51:15 Outpatient R WILDA [facility] [id number] [facility] 2022-07-11 14:30:00 2022-07-11 14:51:15 Office Visit Wilda [facility] 1..840.114 350.1.13.10 4.2.7.2.686 [id number] [facility] 2022-07-11 08:00:00 2022-07-11 08:00:00 Outpatient Libia [facility]UDILLO [facility] [id number] [facility] 2022-07-11 00:00:00 2022-07-11 00:00:00 Orders Only Doctor Unassigned, [place] [facility] 1.840.114 350.1.13.10 4.2.7.2.686 [id number] [facility] 2022-07-03 10:00:00 2022-07-03 10:00:00 Office Visit Wild[facility] 1..840.114 350.1.13.10 4.2.7.2.686 [id number] [facility] 2022-07-03 10:00:00 2022-07-03 09:59:04 Outpatient Libia ASTUDILLO [facility] [id number] [facility] 2022-07-02 00:00:00 2022-07-02 00:00:00 Telephone Team, [facility] 1.840.114 350.1.13.10 4.2.7.2.686 [id number] [facility] 2022-06-26 00:00:00 2022-06-26 00:00:00 Telephone Carla Angela [facility] 1.84.114 350.1.13.10 4.2.7.2.686 [id number] [facility] 2022-06-13 08:30:00 2022-06-13 08:36:26 Outpatient R CARLA ANGELA [facility] [id number] [facility] 2022-06-13 08:30:00 2022-06-13 08:36:26 Office Visit Carla Angela [facility] 1.114 350.1.13.10 4.2.7.2.686 [id number] [facility] 2022-06-13 00:00:00 2022-06-13 00:00:00 Orders Only Doctor Unassigned, [place] [facility] 1.20.114 350.1.13.10 4.2.7.2.686 [id number] [facility] 2021-12-07 00:00:00 2021-12-07 00:00:00 Orders Only Doctor Unassigned, [place] [facility] 1.20.114 350.1.13.10 4.2.7.2.686 [id number] [facility] 2021-12-06 09:45:00 2021-12-06 10:12:14 Outpatient R CARLA ANGELA [facility] [id number] [facility] 2021-12-06 09:45:00 2021-12-06 10:12:14 Office Visit Carla Angela [facility] 1.84.114 350.1.13.10 4.2.7.2.686 [id number] [facility] 2021-12-06 09:45:00 2021-12-06 09:45:00 Outpatient R CARLA ANGELA [facility] [id number] [facility] 2021-11-29 10:15:00 2021-11-29 10:22:40 Outpatient R CARLA ANGELA [facility] [id number] [facility] 2021-11-29 10:15:00 2021-11-29 10:22:40 [facility] 1..840.114 350.1.13.10 4.2.7.2.686 [id number] [facility] 2021-11-22 09:45:00 2021-11-22 09:52:10 Outpatient R CARLA ANGELA [facility] [id number] [facility] 2021-11-22 09:45:00 2021-11-22 09:52:10 [facility] 1..840.114 350.1.13.10 4.2.7.2.686 [id number] [facility] 2021-11-22 09:45:00 2021-11-22 09:52:10 Outpatient R CARLA ANGELA [facility] [id number] [facility] 2021-11-21 14:00:00 2021-11-21 14:00:00 Outpatient R CARLA ANGELA [facility] [id number] [facility] 2021-11-21 00:00:00 2021-11-21 00:00:00 Telephone [facility] 1.2.840.114 350.1.13.10 4.2.7.2.686 [id number] [facility] 2021-11-12 13:30:00 2021-11-12 14:17:00 Outpatient R ANGELA, CARLA [facility] [id number] [facility] 2021-11-12 13:30:00 2021-11-12 14:17:00 Office Visit Carla Angela [facility] 1.2.840.114 350.1.13.10 4.2.7.2.686 [id number] [facility] 2021-07-19 08:00:00 2021-07-19 09:29:43 Office [facility] 1.2.840.114 350.1.13.10 4.2.7.2.686 [id number] [facility] 2021-07-19 08:00:00 2021-07-19 09:29:43 Outpatient R VIVIANE ASTUDILLO [facility] [id number] [facility] 2021-07-19 08:00:00 2021-07-19 08:00:00 Outpatient R VIVIANE ASTUDILLO [facility] [id number] [facility] 2021-07-12 08:15:00 2021-07-12 08:32:42 Outpatient R ANGELA, CARLA [facility] [id number] [facility] 2021-07-12 08:15:00 2021-07-12 08:32:42 Outpatient R CARLA ANGELA [facility] [id number] [facility] 2021-07-12 08:15:00 2021-07-12 08:32:42 Office Visit [facility] 1.2.840.114 350.1.13.10 4.2.7.2.686 [id number] [facility] 2021-07-12 08:15:00 2021-07-12 08:15:00 Outpatient R CARLA ANGELA [facility] [id number] [facility] 2021-07-04 16:15:00 2021-07-04 16:15:00 Outpatient R CARLA ANGELA [facility] [id number] [facility] 2021-07-04 16:15:00 2021-07-04 16:15:00 Office Visit Carla Angela [facility] 1.840.114 350.1.13.10 4.2.7.2.686 [id number] [facility] 2021-07-04 16:15:00 2021-07-04 14:23:27 Outpatient R CARLA ANGELA [facility] [id number] [facility] 2021-06-29 10:00:00 2021-06-29 10:00:00 Outpatient R CARLA ANGELA [facility] [id number] [facility] 2021-06-25 00:00:00 2021-06-25 00:00:00 Orders Only Doctor Unassigned, [place] [facility] 1.84.114 350.1.13.10 4.2.7.2.686 [id number] [facility] 2021-06-22 00:00:00 2021-06-22 00:00:00 Telephone Carla Angela [facility] 1.840.114 350.1.13.10 4.2.7.2.686 [id number] [facility] 2021-06-15 10:45:00 2021-06-15 11:10:14 Outpatient R CARLA ANGELA [facility] [id number] [facility] 2021-06-15 10:45:00 2021-06-15 11:10:14 Office Visit Carla Angela [facility] 1.840.114 350.1.13.10 4.2.7.2.686 [id number] [facility] 2021-05-24 00:00:00 2021-05-24 00:00:00 Telephone Carla Angela [facility] 1.2.840.114 350.1.13.10 4.2.7.2.686 [id number] [facility] 2021-05-21 00:00:00 2021-05-21 00:00:00 Orders Only Doctor Unassigned, [place] [facility] 1.2840.114 350.1.13.10 4.2.7.2.686 [id number] [facility] 2021-05-15 13:15:00 2021-05-15 13:30:00 Office Visit Viviane Astudillo [facility] 1.840.114 350.1.13.10 4.2.7.2.686 [id number] [facility] 2021-05-15 13:15:00 2021-05-15 13:15:00 Outpatient R VIVIANE ASTUDILLO [facility] [id number] [facility] 2021-05-08 00:00:00 2021-05-08 00:00:00 Orders Only Doctor Unassigned, [place] [facility] 1.840.114 350.1.13.10 4.2.7.2.686 [id number] [facility] 2021-04-19 00:00:00 2021-04-19 00:00:00 Telephone Carla Angela [facility] 1.840.114 350.1.13.10 4.2.7.2.686 [id number] [facility] 2021-04-11 13:55:00 2021-04-11 23:59:00 Outpatient R CARLA ANGELA [facility] [id number] [facility] 2021-04-11 13:55:00 2021-04-11 23:59:00 [facility] [id number] [facility] 2021-04-11 13:30:00 2021-04-11 13:45:00 Office Visit Viviane Astudillo Carla Angela [facility] [id number] [facility] 2021-04-11 13:30:00 2021-04-11 13:30:00 Outpatient R CARLA ANGELA [facility] [id number] Annie [facility] 2021-03-27 00:00:00 2021-03-27 00:00:00 Patient Secure Msg Doctor Unassigned, [place] [facility] 1.840.114 350.1.13.10 4.2.7.2.686 [id number] [facility] 2021-03-27 00:00:00 2021-03-27 00:00:00 Telephone Carla Angela [facility] 1.840.114 350.1.13.10 4.2.7.2.686 [id number] [facility] 2021-03-27 00:00:00 2021-03-27 00:00:00 Telephone AngelaCarla [facility] 1.840.114 350.1.13.10 4.2.7.2.686 [id number] [facility] 2021-03-27 00:00:00 2021-03-27 00:00:00 Telephone Carla Angela [facility] 1.2.840.114 350.1.13.10 4.2.7.2.686 [id number] [facility] 2021-03-26 07:34:00 2021-03-26 18:41:00 Outpatient R CARLA ANGELA [facility] [id number] [facility] 2021-03-26 07:34:00 2021-03-26 18:41:00 Hospital Encounter Carla Angela [facility] 1.2.840.114 350.1.13.10 4.2.7.2.686 [id number] [facility] 2021-03-26 10:50:00 2021-03-26 13:07:00 Surgery Carla Angela [facility] 1.2.840.114 350.1.13.10 4.2.7.2.686 [id number] [facility] 2021-03-20 00:00:00 2021-03-20 00:00:00 Telephone Carla Angela [facility] 1.2.840.114 350.1.13.10 4.2.7.2.686 [id number] [facility] 2021-03-16 08:30:00 2021-03-16 08:30:00 Outpatient R ANGELACARLA [facility] [id number] [facility] 2021-03-16 08:30:00 2021-03-16 08:30:00 Outpatient R CARLA ANGELA [facility] [id number] [facility] 2021-03-15 15:10:00 2021-03-15 23:59:00 Outpatient R CARLA ANGELA [facility] [id number] [facility] 2021-03-15 15:10:00 2021-03-15 23:59:00 Hospital Encounter Carla [facility] 1.2840.114 350.1.13.10 4.2.7.2.686 [id number] [facility] 2021-03-15 15:06:30 2021-03-15 15:21:30 Roll Cutter Visit Pob, Adc Lab Main Carla Angela [facility] 1.2840.114 350.1.13.10 4.2.7.2.686 [id number] [facility] 2021-03-15 12:00:00 2021-03-15 15:09:00 Hospital Encounter Carla [facility] 1.20.114 350.1.13.10 4.2.7.2.686 [id number] [facility] 2021-03-15 13:07:20 2021-03-15 14:07:20 Ancillary Visit Morales Yeboah Craig [facility] 1.2.114 350.1.13.10 4.2.7.2.686 [id number] [facility] 2021-03-15 13:00:00 2021-03-15 13:00:00 Outpatient R CARLA ANGELA [facility] [id number] [facility] 2021-03-14 00:00:00 2021-03-14 00:00:00 Telephone Carla Angela [facility] 1..114 350.1.13.10 4.2.7.2.686 [id number] [facility] 2021-03-08 00:00:00 2021-03-08 00:00:00 Prep For Surgery Carla Angela [facility] 1.2.114 350.1.13.10 4.2.7.2.686 [id number] [facility] 2021-03-07 14:50:00 2021-03-07 23:59:00 [facility] 1.84114 350.1.13.10 4.2.7.2.686 [id number] [facility] 2021-03-07 14:30:00 2021-03-07 15:16:21 Outpatient R CARLA ANGELA [facility] [id number] [facility] 2021-03-07 14:30:00 2021-03-07 15:16:21 Outpatient R CARLA ANGELA [facility] [id number] [facility] 2021-03-07 14:11:55 2021-03-07 15:16:21 Office Visit Carla Angela [facility] 1.84.114 350.1.13.10 4.2.7.2.686 [id number] [facility] 2021-03-05 00:00:00 2021-03-05 00:00:00 Telephone Carla Angela [facility] 1.84.114 350.1.13.10 4.2.7.2.686 [id number] [facility] 2021-02-20 00:00:00 2021-02-20 00:00:00 Orders Only Doctor Unassigned, [place] [facility] 1.114 350.1.13.10 4.2.7.2.686 [id number] [facility] 2021-02-12 00:00:00 2021-02-12 00:00:00 Telephone Carla Angela [facility] 1.2.114 350.1.13.10 4.2.7.2.686 [id number] [facility] 2021-02-09 00:00:00 2021-02-09 00:00:00 Telephone Carla Angela [facility] Office Building 1..840.114 350.1.13.10 4.2.7.2.686 [id number] [facility] 2021-02-07 14:30:00 2021-02-07 15:07:36 Outpatient R CARLA ANGELA [facility] [id number] [facility] 2021-02-07 14:25:52 2021-02-07 15:07:36 Office Visit Carla Angela [facility] 1..840.114 350..13.10 4.2.7.2.686 [id number] [facility] 2021-02-07 14:30:00 2021-02-07 14:30:00 Outpatient R CARLA ANGELA [facility] [id number] [facility] 2021-02-07 00:00:00 2021-02-07 00:00:00 Orders Only Doctor Unassigned, [place] [id number] 350.1.13.10 4.2.7.2.686 [id number] [facility] 2020-08-03 00:00:00 2020-08-03 00:00:00 Orders Only Doctor Unassigned, [place] [facility] 1.284.114 350.1.13.10 4.2.7.2.686 [id number] [facility] Notes Date/Time Note Provider Source 2023-01-01 13:28:01 [id number] [id number]/JC7TrYv [id number] 18-01-063:28:01 Farzad Cruz [id number]/23Incoming call from patient after receiving a text message from Health Maintenance Team regarding overdue colorectal cancer screening.Current overdue topics are as followsHealth Maintenance Due Topic Date Due Medicare Wellness Visit Never done HEPATITIS C (HCV) SCREEN Never done DTaP,Tdap,and Td Vaccines (1 - Tdap) Never done Colorectal Cancer Screening Never done Zoster Recombinant Vaccine (SHINGRIX) (1 of 2) Never done PNEUMOCOCCAL VACCINES 65+ (1 - PCV) Never done AAA Screening Never done SARS-CoV-2 (COVID-19) Vaccine (4 - Moderna series) 05/01/2021 INFLUENZA VACCINE (1) Never done Call Outcome: Patient called in after receiving a text message from Health Maintenance Team. Patient declined to schedule an appointment at this time. Patient stated that he completed a colonoscopy two years ago outside of [facility]. Patient also stated that he has a PCP outside of [facility] that handles his care. I apologized to the patient and advised him to disregard the text message. Patient was encouraged to call back with any questions. [id number] encounter [id number]:34:04Telephon e encounter [id number]. [id number] for patient [id number] R [address] [id number]- [id number]. 15|[id number]. [id number] Velasquez Bullock [facility]"
[2023-07-07 16:12] LABS: Absolute Eosinophils 0.1 K/uL (0-0.5); Absolute Lymphocytes (CBC) 1.6 K/uL (0.7-4.9); Absolute Monocytes 1.1 K/uL (0.1-1.3); Absolute Neutrophil 4.7 K/uL (1.8-8.0); Basophils % 0.6 % (0-1.3); Eosinophils % 1.5 % (0-4.4); Hematocrit 39.9 % (39.6-49.0); Hemoglobin 13.4 g/dL (13.6-17.9); Lymphocytes % 21.4 % (15.3-44.8); MCH 32.2 pg (27.0-35.0); MCHC 33.6 g/dL (32.0-36.0); MCV 95.8 fL (80-100); Monocytes % 14.9 % (3.3-12.3); Neutrophils % 61.6 % (41.7-73.7); Platelets 350 thou/uL (152-406); RBC Red Blood Cell Count 4.17 M/uL (4.33-5.43); Red Cell Distribution Width 14.1 % (12.1-15.2)
[2023-07-07 16:14] LABS: PT Prothrombin Time 11.7 SECONDS (9.5-12.5); PTT, Activated Partial Thromb 34.5 SECONDS (24.3-36.9); Protime INR 1.07
[2023-07-07 16:22] LABS: Albumin 3.1 g/dL (3.4-5.0); Albumin/Globulin Ratio 0.5 (1.1-1.8); Anion Gap 8.9 mEq/L (5.0-15.0); Bilirubin Total 0.5 mg/dL (0.2-1.0); Globulin 5.7 g/dL (2.3-3.5); Potassium 3.9 mEq/L (3.5-5.1); Protein, Total 8.8 g/dL (6.4-8.2)
--- NOTE | 2023-07-07 17:28 | RAD REPORT ---
EXAM DESCRIPTION: RAD - Foot Left 3 View - 07/07/2023 5:11 pm CLINICAL HISTORY: Left Foot pain FINDINGS: No fracture or dislocation is seen. Soft tissue swelling lateral forefoot. No adjacent bony destruction seen. Large calcaneal spur
--- NOTE | 2023-07-07 17:58 | EDPHYS ---
Physician Documentation [facility] Name: Zack Michel Age: 68 yrs Sex: Male : 1955 Arrival Date: 07/07/2023 Time: 14:30 Bed 15 Private MD: ED Physician Matthias Kong HPI: 07/06 15:40 This 68 yrs old Male presents to ER via Wheelchair with complaints of Foot Pain. cp 15:40 The patient presents with pain, that is acute, swelling, tenderness. The complaints cp affect the lateral aspect of left foot. 15:40 Context: resulted from an unknown cause, the patient can partially bear weight, the cp patient is able to ambulate, with moderate difficulty. Onset: The symptoms/episode began/occurred last week. Associated signs and symptoms: Pertinent positives: swelling, warmth, Pertinent negatives fever. Treatment prior to arrival includes: no previous treatment. Historical: - Allergies: 15:00 No Known Allergies; kd3 - Immunization history:: Adult Immunizations up to date. - Social history:: Smoking status: Patient denies any tobacco usage or history of. ROS: 15:45 Constitutional: Negative for body aches, chills, fever, poor PO intake, cp 15:45 Abdomen/GI: Negative for abdominal pain, nausea, vomiting, and diarrhea, cp 15:45 Back: Negative for pain at rest, pain with movement, 15:45 MS/extremity: Positive for erythema, pain, swelling, tenderness, of the left foot, 15:45 Eyes: Negative for injury, pain, redness, and discharge, cp 15:45 Cardiovascular: Negative for chest pain, palpitations, 15:45 Respiratory: Negative for cough, shortness of breath, wheezing, 15:45 Neuro: Negative for altered mental status, dizziness, headache, weakness, cp 15:45 All other systems are negative, Exam: 15:50 Constitutional: The patient appears in no acute distress, alert, awake, cp non-diaphoretic, non-toxic, well developed, well nourished, 15:50 Head/Face: Normocephalic, atraumatic. cp 15:50 Eyes: Periorbital structures: appear normal, Conjunctiva: normal, no exudate, no injection, Sclera: no appreciated abnormality, Lids and lashes: appear normal, bilaterally, 15:50 ENT: External ear(s): are unremarkable, Nose: is normal, Mouth: Lips: moist, Oral mucosa: moist, Posterior pharynx: Airway: no evidence of obstruction, patent, 15:50 Chest/axilla: Inspection: normal, 15:50 Cardiovascular: Rate: normal, Rhythm: regular, JVD: is not appreciated, 15:50 Respiratory: the patient does not display signs of respiratory distress, Respirations: normal, no use of accessory muscles, no retractions, labored breathing, is not present, Breath sounds: are clear throughout, no decreased breath sounds, no stridor, no wheezing, 15:50 Abdomen/GI: Exam negative for discomfort, distension, guarding, Inspection: abdomen appears normal, 15:50 Back: pain, is absent, ROM is normal, 15:50 Neuro: Orientation: to person, place \T\ time. Mentation: is normal, 20:05 ECG was reviewed by the Attending Physician. Vital Signs: 14:54 BP 135 / 75; Pulse 78; Resp 15; Temp 98.2(O); Pulse Ox 98% on R/A; Weight 109.77 kg; kd3 Height 6 ft. 4 in. ; Pain 2/10; 18:27 BP 146 / 79; Pulse 77; Resp 18; Pulse Ox 97% on R/A; me1 19:00 BP 147 / 69; Pulse 77; Resp 18; Pulse Ox 97% on R/A; me1 14:54 Body Mass Index 29.46 (109.77 kg, 193.04 cm) kd3 14:54 Pain Scale: Adult kd3 MDM: 15:01 Patient medically screened. cp 16:00 Differential diagnosis: sepsis, osteomyelitis, abscess, cellulitis. cp 18:00 Data reviewed: vital signs, nurses notes, lab test result(s), radiologic studies, plain cp films. 18:00 Management of patient was discussed with the following: Primary Care Provider: DR Adams will admit after evaluating patient in ED. I considered the following discharge prescriptions or medication management in the emergency department Medications were administered in the Emergency Department. See MAR. Care significantly affected by the following chronic conditions: Diabetes. Counseling: I had a detailed discussion with the patient and/or guardian regarding the historical points, exam findings, and any diagnostic results supporting the discharge/admit diagnosis, lab results, radiology results, the need for further work-up and treatment in the hospital. 07/06 15:34 Order name: Blood Culture Adult (2) cp 07/06 15:34 Order name: CBC with Diff; Complete Time: 17:55 cp 07/06 15:34 Order name: CMP; Complete Time: 17:55 cp 07/06 15:34 Order name: Lactate w/ 2H reflex if indic.; Complete Time: 17:55 cp 07/06 15:34 Order name: Protime (+inr); Complete Time: 17:55 cp 07/06 15:34 Order name: Ptt, Activated; Complete Time: 17:55 cp 07/06 15:34 Order name: Urinalysis w/ reflexes cp 07/06 15:34 Order name: CRP; Complete Time: 17:55 cp 07/06 18:36 Order name: Wound Culture 07/06 18:56 Order name: Basic Metabolic Panel EDMS 07/06 18:56 Order name: Basic Metabolic Panel EDMS 07/06 18:56 Order name: CBC with Automated Diff EDMS 07/06 18:56 Order name: CBC with Automated Diff EDMS 07/06 23:24 Order name: Hemoglobin A1c EDMD 07/06 15:34 Order name: XRAY Foot LEFT 3 View; Complete Time: 17:55 07/06 17:56 Interpretation: Reviewed report. 07/06 15:34 Order name: EKG; Complete Time: 15:34 cp 07/06 15:34 Order name: Accucheck; Complete Time: 17:53 cp 07/06 15:34 Order name: Cardiac monitoring; Complete Time: 18:21 07/06 15:34 Order name: EKG - Nurse/Tech; Complete Time: 20:11 cp 07/06 15:34 Order name: IV Saline Lock - Large Bore; Complete Time: 15:53 cp 07/06 15:34 Order name: Labs collected and sent; Complete Time: 15:53 cp 07/06 15:34 Order name: O2 Per Protocol; Complete Time: 18:21 cp 07/06 15:34 Order name: O2 Sat Monitoring; Complete Time: 18:21 cp 07/06 15:34 Order name: Vital Signs; Complete Time: 15:35 cp EC:05 Rate is 84 beats/min. Rhythm is regular. NV interval is normal. QRS interval is cp prolonged at 106 msec. QT interval is normal. T waves are Inverted in lead aVR. Interpreted by me. Reviewed by me. Administered Medications: No medications were administered Disposition: 07/07 07:16 Co-signature as Attending Physician, Matthias Kong MD I reviewed the patient's care rn provided by the Advanced Practice Provider and agree with the diagnosis and treatment plan. Disposition Summary: 07/07/23 17:57 Hospitalization Ordered Notes: Hospitalization Status: Inpatient Admission cp Provider: Tashi Adams cp Condition: Stable cp Problem: new cp Symptoms: have improved cp Bed/Room Type: Standard cp Location: Telemetry/MedSurg (Inpatient)(07/07/23 23:16) kl Room Assignment: [facility](07/07/23 23:16) Diagnosis - Cellulitis of left lower limb cp Forms: - Medication Reconciliation Form cp - SBAR form cp - Leadership Thank You Letter cp Signatures: Dispatcher [employer] EDMS Lala Valdez Kimberly, RN RN kl Nieto, Roman, MD MD rn Page, Corey, PA PA Betzaida Etienne RN RN kd3 Corrections: (The following items were deleted from the chart) 07/06 18:52 17:57 Telemetry/MedSurg (Inpatient) cp bd 18:52 17:57 cp bd 23:16 18:52 RUST ER HOLD bd kl 23:16 18:52 ERHOLD- bd kl
--- NOTE | 2023-07-07 17:58 | ER ---
Nurse's Notes [facility] Name: Zack Michel Age: 68 yrs Sex: Male : 1955 Arrival Date: 07/07/2023 Time: 14:30 Bed 15 Private MD: Diagnosis: Cellulitis of left lower limb Presentation: 07/06 14:57 Chief complaint: Patient states: I am type 2 diabetic and i have an infection in my kd3 left foot. IT has been since April but this past Friday we went in for the diabetic shoe and we asked that doctor to look at it but the doctor said he couldn't because of Medicare and to come back today. Today he looked at it and said to come to the ED for antibiotic medications. He said to tell y'all that Dr. Davalos sent us here. Coronavirus screen: Vaccine status: Patient reports receiving the 2nd dose of the covid vaccine. Ebola Screen: No symptoms or risks identified at this time. Initial Sepsis Screen: Does the patient meet any 2 criteria? No. Patient's initial sepsis screen is negative. Does the patient have a suspected source of infection? No. Patient's initial sepsis screen is negative. Risk Assessment: Do you want to hurt yourself or someone else? Patient reports no desire to harm self or others. Onset of symptoms was July 07, 2023. 14:57 Method Of Arrival: Wheelchair kd3 14:57 Acuity: GEO 3 kd3 Triage Assessment: 15:00 General: Appears in no apparent distress. Behavior is calm, cooperative. Pain: kd3 Complains of pain in left foot. Historical: - Allergies: 15:00 No Known Allergies; kd3 - Immunization history:: Adult Immunizations up to date. - Social history:: Smoking status: Patient denies any tobacco usage or history of. Screenin:21 [facility] ED Fall Risk Assessment (Adult) History of falling in the last 3 months, me1 including since admission No falls in past 3 months (0 pts) Confusion or Disorientation No (0 pts) Intoxicated or Sedated No (0 pts) Impaired Gait Yes (1 pt) Mobility Assist Device Used Yes (1 pt) Altered Elimination No (0 pt) Score/Fall Risk Level 0 - 2 = Low Risk Maintained a safe environment, Hourly rounding (assess needs \T\ fall precautionary measures) done, Used ambulatory aids as needed (educated on \T\ assisted with). Abuse screen: Denies threats or abuse. Nutritional screening: No deficits noted. Tuberculosis screening: No symptoms or risk factors identified. Assessment: 18:21 General: Appears comfortable, well groomed, well developed, well nourished, Behavior is me1 calm, cooperative, appropriate for age, Reports Sent by Dr Davalos for infected diabetic wound to left foot. Pain: Denies pain. Neuro: Level of Consciousness is awake, alert, obeys commands, Oriented to person, place, time, situation, Appropriate for age. Cardiovascular: Patient's skin is warm and dry. Respiratory: Airway is patent Trachea midline Respiratory effort is even, unlabored, Respiratory pattern is regular, symmetrical. Derm: Wound noted left foot Wound is diabetic foot wound. Vital Signs: 14:54 BP 135 / 75; Pulse 78; Resp 15; Temp 98.2(O); Pulse Ox 98% on R/A; Weight 109.77 kg; kd3 Height 6 ft. 4 in. ; Pain 2/10; 18:27 BP 146 / 79; Pulse 77; Resp 18; Pulse Ox 97% on R/A; me1 19:00 BP 147 / 69; Pulse 77; Resp 18; Pulse Ox 97% on R/A; me1 14:54 Body Mass Index 29.46 (109.77 kg, 193.04 cm) kd3 14:54 Pain Scale: Adult kd3 ED Course: 14:33 Patient arrived in ED. ra3 14:38 Warner Patricia PA is PHCP. cp 14:38 Matthias Kong MD is Attending Physician. cp 15:00 Triage completed. kd3 15:00 Arm band placed on right wrist. kd3 15:50 Initial lab(s) drawn, by me, sent to lab. First set of blood cultures drawn by me. as6 15:53 Inserted saline lock: 20 gauge in right antecubital area, using aseptic technique. as6 Blood collected. 17:12 XRAY Foot LEFT 3 View In Process Unspecified. EDMS 17:56 Tashi Adams MD is Hospitalizing Provider. cp 18:12 Georgia Vidales, LYNN is Primary Nurse. me1 18:21 Patient has correct armband on for positive identification. Bed in low position. Call me1 light in reach. Side rails up X 1. Provided Education on: POC. Verbalized understanding. . Client placed on continuous cardiac and pulse oximetry monitoring. NIBP monitoring applied. monitoring engineer on. Pulse ox on. NIBP on. 18:21 No provider procedures requiring assistance completed. me1 18:27 Blood Culture Adult (2) Sent. me1 18:37 Urinalysis w/ reflexes Sent. me1 18:37 Urine collected: clean catch specimen, clear. me1 18:40 Wound Culture Sent. me1 18:40 Wound culture swab sent to lab. me1 23:31 Patient admitted, IV remains in place. me1 23:43 Primary Nurse role handed off by Georgia Vidales, RN as6 Administered Medications: No medications were administered Medication: 18:21 VIS not applicable for this client. md1 Outcome: 17:57 Decision to Hospitalize by Provider. cp 23:30 Admitted to Tele accompanied by tech, via stretcher, room 427, with chart, Report md1 called to Faxed at 23:26. Notified LYNN Pierre, front of house manager that report was faxed. Instructed by Gabby to send patient up in 30 mins. 23:30 Condition: stable /12 00:48 Patient left the ED. lg3 Signatures: Dispatcher [employer] EDMS Warner Patricia PA PA cp Able, Lacie, RN RN lg3 Jerel Rojas, LYNN BAILEY as6 Betzaida Daugherty RN RN 3 Georgia Vidales, RN RN me1 Mariel Javier ra3
[2023-07-07] MEDS ORDERED: MORPHINE 4 MG/ML SYR IV PRN (18:52)
[2023-07-07 18:53] LABS: Urine Bilirubin NEGATIVE (Negative); Urine Blood Negative (Negative); Urine Clarity Clear (Clear); Urine Color Colorless (Yellow); Urine Glucose 4+ (Over) (Negative); Urine Protein NEGATIVE (Negative); Urine Urobilinogen Normal (Normal); Urine pH 5.5 (5.0-7.0)
[2023-07-07] MEDS: VANCOMYCIN 1 GM in NA CHLORIDE 0.9% 250 ML IVPB SCH (19:00)
[2023-07-07] MEDS: VANCOMYCIN 2 GM in NA CHLORIDE 0.9% 500 ML IVPB ONE (21:00)
[2023-07-07] MEDS ORDERED: NA CHLORIDE 0.9% 250 ML ONE (21:05)
[2023-07-07] MEDS ORDERED: VANCOMYCIN 1 GM/VIAL ONE (21:05)
[2023-07-07] MEDS ORDERED: TRAMADOL HCL 50 MG TAB PO PRN (21:37)
[2023-07-07 21:49] VITALS: BMI 29.4
[2023-07-07] MEDS: NACHLORIDE 0.45% 1,000 ML IV SCH (22:00)
--- NOTE | 2023-07-07 22:03 | P.HP ---
Patient History Date of Service: 07/07/23 Reason for admission: L FOOT INFECTION History of Present Illness: [facility]U IS A DIABETIC WITH NEUROPATHY. HE HAS A LARGE CALLUS WITH ULCER THAT IS TAKEN CARE OF BY DR. ROSALES. HE SUDDENLY HAD REDNESS AND PUS FROM THE FOOT ULCER THAT IS AT PLANTER SURFACE OF THE FIRST METATARSAL REGION. HE WAS SENT TO ER. FAMILY FOUND ME WALKING INTO ER AND SO I TOOK CARE OF ADMISSION HE IS MY PATIENT. HIS DM IS NOT WELL CONTROLLED FOR A WHILE DESPITE EFFORTS. FOLLOWING IS HIS HISTORY FROM MY OFFICE EMR. Benign hypertension [I10] 2018 Obstructive sleep apnea [G47.33] 2018 DM (diabetes mellitus) [E11.9 0.2] NORMAL STRESS TEST NEG 2020 NORMAL STRESS TEST NEG 2020 2017 Testicular hypogonadism [E29.1] SHOTS DID NOT WORK. SHOTS DID NOT WORK. 2018 Erectile dysfunction [N52.9] 2018 Dyslipidemia [E78.5] 2020 Hyperplastic polyp of ascending colon [K63.5] NO ADENOMA NO ADENOMA 2022 Diabetic peripheral neuropathy [E11.42 0.2] 2022 Type 2 diabetes mellitus with pressure callus [E11.628, L84 0.2] History PMH: add past history item PSH: GANGLION CYST add surgical history item FH: add relationship to patient HTN, CAD add family history item SH: add special add social history item Cogn: add cognitive status Func: add functional status Psych: add special add psychological status Habits: add special Smoking: Never smoker (as of: 07/17/2017) add habits history item Diet: add diet history item Exc: add special add exercise history item Permanent Rx Meds 103 Atorvastatin Calcium 10 mg Tab TAKE 1 TABLET BY MOUTH EVERY DAY WITH EVENING MEAL 203 buPROPion ER (XL) 300 mg Tab ER 24hr TAKE 1 TABLET BY MOUTH EVERY DAY IN THE MORNING 302 Carvedilol 6.25 mg Tab TAKE 1 TABLET BY MOUTH TWICE A DAY WITH MEALS 408 Cialis 5 mg Tab ONE PO DAILY AT SAME TIME Ciclopirox 8 % Solution 1 application topically to affected area daily 6006/2017 Escitalopram Oxalate 20 mg Tab TAKE 1 TABLET BY MOUTH EVERY DAY IN MORNING 7006/2020 Fenofibrate Micronized 67 mg Cap TAKE 1 CAPSULE BY MOUTH DAILY WITH FOOD 8007/2019 FreeStyle Vic 14 Day Sensor Miscellaneous USE DIRECTED FOR CONTINUOUS GLUCOSE MONITORING 904/2020 FreeStyle Vic [place] Device USE DIRECTED Glimepiride 4 mg Tab ONE TABLET PO DAILY WITH BREAKFAST NewLurasidone 40 mg Tab Olmesartan Medoxomil-HCTZ 40/12.5 mg Tab TAKE 1 TABLET BY MOUTH EVERY DAY IN MORNING 13007/2020 Tadalafil 20 mg Tab TAKE 1 TABLET BY MOUTH DAILY NEEDED 14010/2022 Trulicity 3 mg/0.5ML Solution Pen-injector Subcutaneous INJECT 0.5 ML SC ONCE A WEEK Xigduo XR 01/1000 mg Tab ER 24hr TAKE 1 TABLET BY MOUTH DAILY IN MORNING WITH FOOD Allergies poison roldan extract Allergy (Verified 04/19/19 12:58) Itching/Hives/Rash Home medications list reviewed: Yes Home Medications: Atorvastatin Calcium 10 mg PO DAILY 01/06/18 Escitalopram [Lexapro*] 20 mg PO DAILY 01/06/18 Olmesartan/Hydrochlorothiazide [Olmesartan-Hctz 40-12.5 mg Tab] 1 tab PO DAILY 01/06/18 buPROPion HCL [Bupropion Xl] 300 mg PO DAILY 01/06/18 carvediloL [Carvedilol] 6.25 mg PO BID 01/06/18 Dapagliflozin/Metformin HCl [Xigduo Xr 5 mg-1,000 mg Tablet] 1 tab PO DAILY 07/07/23 Dulaglutide [Trulicity] 3 mg SQ EVERY 7TH DAY 07/07/23 Fenofibrate,Micronized [Fenofibrate] 67 mg PO DAILY 07/07/23 Lurasidone HCl [Latuda] 40 mg PO 07/07/23 Zolpidem Tartrate [Ambien] 5 mg PO BEDTIME PRN PRN 07/07/23 - Past Medical/Surgical History Diabetic: Yes -: Hypertension -: Panic attacks -: Depression -: High Cholesterol -: Skin infection -: Too knee arthroscopic sx -: Debridement of the back of neck - Family History Father -: Heart disease Mother -: Hypertension, Stroke - Social History Alcohol use: Yes CD- Drugs: No Caffeine use: Yes Review of Systems 10-point ROS is otherwise unremarkable Physical Examination - Physical Exam General: Mild distress HEENT: Atraumatic, PERRLA, Mucous membr. moist/pink, EOMI, Sclerae nonicteric Neck: Supple, 2+ carotid pulse no bruit, No LAD, Without JVD or thyroid abnormality Respiratory: Clear to auscultation bilaterally, Normal air movement Cardiovascular: Regular rate/rhythm, Normal S1 S2 Gastrointestinal: Normal bowel sounds, No tenderness Musculoskeletal: No tenderness Integumentary: No rashes, Diabetic ulcer (L FOOT PLANTER MEDIAL BASE OF THE FIRST METATARSAL.) Neurological: Normal gait, Normal speech, Normal strength at 5/5 x4 extr, Normal tone, Normal affect Lymphatics: No axilla or inguinal lymphadenopathy - Studies Laboratory Data (last 24 hrs) 07/07/23 07/07/23 07/07/23 15:50 15:50 15:50 WBC 7.60 Hgb 13.4 L Hct 39.9 Plt Count 350 PT 11.7 INR 1.07 APTT 34.5 Sodium 131 L Potassium 3.9 BUN 23 H Creatinine 1.44 H Glucose 114 H Total Bilirubin 0.5 AST 16 ALT 24 Alkaline Phosphatase 58 Assessment and Plan - Problems (Diagnosis) (1) Ulcer of left foot due to type 2 diabetes mellitus Current Visit: Yes Status: Acute Plan: IV VANCO IV ZOSYN CULTURE MRI AND DOPPLER PROGNOSIS POOR FOR THE FOOT MAY NEED HBO IF ABX DO NOT WORK. PLAN FOR SIX WEEKS OF ABX IF HE HAS OM. CHECK A1C - Advance Directives Does patient have a Living Will: No Does patient have a Durable POA for Healthcare: No
[2023-07-07] MEDS ORDERED: NACHLORIDE 0.45% 1,000 ML IV ONE (22:42)
[2023-07-08] MEDS: PIPER TAZO 3.375 GM in NA CHLORIDE 0.9% 100 ML IV SCH (01:12)
[2023-07-08 07:46] LABS: Absolute Eosinophils 0.1 K/uL (0-0.5); Absolute Lymphocytes (CBC) 1.3 K/uL (0.7-4.9); Absolute Monocytes 1.1 K/uL (0.1-1.3); Absolute Neutrophil 3.6 K/uL (1.8-8.0); Basophils % 0.5 % (0-1.3); Eosinophils % 2.3 % (0-4.4); Hematocrit 35.4 % (39.6-49.0); Hemoglobin 12.2 g/dL (13.6-17.9); Lymphocytes % 21.1 % (15.3-44.8); MCH 32.8 pg (27.0-35.0); MCHC 34.3 g/dL (32.0-36.0); MCV 95.5 fL (80-100); Monocytes % 17.9 % (3.3-12.3); Neutrophils % 58.2 % (41.7-73.7); Nucleated Red Blood Cells % 0.1 % (0-0); Platelets 319 thou/uL (152-406); RBC Red Blood Cell Count 3.71 M/uL (4.33-5.43)
[2023-07-08 08:09] LABS: Anion Gap 8.8 mEq/L (5.0-15.0); Potassium 3.8 mEq/L (3.5-5.1)
[2023-07-08] MEDS: FENOFIBRATE MICRONIZED 67 MG PO SCH (09:00)
[2023-07-08] MEDS: VALSARTAN 160 MG TAB PO SCH (09:22)
[2023-07-08] MEDS: ESCITALOPRAM 20 MG TAB PO SCH (09:22)
[2023-07-08] MEDS: hydroCHLOROthiazide 12.5 MG CAP PO SCH (09:22)
[2023-07-08] MEDS: Mupirocin NASAL 2 APPL/1 GM TUBE NAS SCH (09:23)
[2023-07-08] MEDS: carvediloL 6.25 MG TAB PO SCH (09:23)
[2023-07-08] MEDS: ATORVASTATIN 10 MG TAB PO SCH (09:24)
[2023-07-08] MEDS: BUPROPION HCL XL 150 MG TAB PO SCH (09:29)
--- NOTE | 2023-07-08 11:02 | RAD REPORT ---
EXAM DESCRIPTION: RAD - Chest Single View - 07/08/2023 10:48 am CLINICAL HISTORY: Device placement PICC line placement . IMPRESSION: PICC line with its tip in the mid superior vena cava
--- NOTE | 2023-07-08 12:50 | RAD REPORT ---
EXAM DESCRIPTION: US - Lower Extremity Arterial Bilat - 07/08/2023 12:30 pm CLINICAL HISTORY: swelling left leg Leg pain, claudication COMPARISON: No comparisons TECHNIQUE: Bilateral lower extremity arterial Doppler examination was performed with waveform tracin g and velocity measurements. FINDINGS: Right lower extremity arterial system demonstrates triphasic waveforms throughout. Left lower extremity arterial system demonstrates triphasic waveforms. Below the level of the poplite al vessel there is monophasic waveforms noted in the left posterior tibial and dorsalis pedis. No high-grade stenosis or occlusion. IMPRESSION: Moderate peripheral vascular disease is seen infrapopliteal vessels on the left.
--- NOTE | 2023-07-08 12:53 | RAD REPORT ---
EXAM DESCRIPTION: MRI - Foot Left Wo Cont - 07/08/2023 12:41 pm CLINICAL HISTORY: swelling/wound on left foot Pain and swelling COMPARISON: Foot Left 3 View dated 07/07/2023 FINDINGS: Mild marrow edema is seen involving the fifth metatarsal head as well as the base of the p roximal phalanx of the fifth toe. There is edema in the surrounding soft tissues significant soft tis jere thickening. Fluid collection is seen centered at the fifth metatarsophalangeal joint. Early evide nce of mild marrow placement is seen involving the lateral margin of the fifth metatarsal head. IMPRESSION: Very early findings of osteomyelitis are suspected lateral fifth metatarsal head. Signif icant soft tissue swelling is present in the region along with fluid centered at the fifth metatarsal -phalangeal joint. This could indicate septic arthritis.
--- NOTE | 2023-07-08 13:09 | P.PN ---
Subjective Date of Service: 07/08/23 Chief Complaint: L FOOT INFECTION Subjective: No new changes HERE FOR FOOT INFECTION. MRI DONE. I WILL CALL PATIENT. Review of Systems 10-point ROS is otherwise unremarkable General: Weakness Physical Examination - Vital Signs Temperature: 97.8 F Blood Pressure: 143/69 Pulse: 77 Respirations: 16 Pulse Ox (%): 97 - Physical Exam General: Oriented x3, Mild distress HEENT: Atraumatic, PERRLA, EOMI Neck: Supple, JVD not distended Respiratory: Clear to auscultation bilaterally, Normal air movement Cardiovascular: Regular rate/rhythm, Normal S1 S2 Gastrointestinal: Normal bowel sounds, No tenderness Musculoskeletal: No tenderness Integumentary: No rashes, Diabetic ulcer (FOOT LATERAL INFECTION.) Neurological: Normal speech, Normal tone, Normal affect Lymphatics: No axilla or inguinal lymphadenopathy - Studies Laboratory Data (last 24 hrs) 07/07/23 07/07/23 07/07/23 15:50 15:50 15:50 WBC 7.60 Hgb 13.4 L Hct 39.9 Plt Count 350 PT 11.7 INR 1.07 APTT 34.5 Sodium 131 L Potassium 3.9 BUN 23 H Creatinine 1.44 H Glucose 114 H Total Bilirubin 0.5 AST 16 ALT 24 Alkaline Phosphatase 58 Microbiology Data (last 24 hrs): 07/07/23 18:30 Wound - Left Foot Gram Stain - Final Medications List Reviewed: Yes Assessment And Plan - Current Problems (Diagnosis) (1) Ulcer of left foot due to type 2 diabetes mellitus Current Visit: Yes Status: Acute Plan: IV VANCO IV ZOSYN CULTURE MRI AND DOPPLER PROGNOSIS POOR FOR THE FOOT MAY NEED HBO IF ABX DO NOT WORK. PLAN FOR SIX WEEKS OF ABX IF HE HAS OM. CHECK A1C MRI SHOWS OM AND ALSO POSSIBLE SEPTIC ARTHRITIS. WILL NEED TERTIARY CARE.
[2023-07-08] MEDS: ACETAMINOPHEN 500 MG TAB PO PRN (14:27)
[2023-07-08] MEDS ORDERED: VANCOMYCIN 1 GM in NA CHLORIDE 0.9% 250 ML IVPB SCH (16:00)
[2023-07-08] MEDS ORDERED: VANCOMYCIN 2 GM in NA CHLORIDE 0.9% 500 ML IVPB SCH (16:00)
[2023-07-08] MEDS: Lurasidone Hcl [Latuda] 40 MG Tablet PO SCH (16:50)
[2023-07-08] MEDS ORDERED: Lurasidone Hcl [Latuda] 40 MG Tablet PO SCH (17:00)
[2023-07-08] MEDS: VANCOMYCIN 1.75 GM in NA CHLORIDE 0.9% 500 ML IVPB SCH (20:33)
[2023-07-08] MEDS ORDERED: ZOLPIDEM TARTRATE 5 MG TABLET PO PRN (21:00)
[2023-07-09] MEDS: ENOXAPARIN 40 MG/0.4 ML SQ SCH (08:55)
[2023-07-09] MEDS ORDERED: METFORMIN HCL PO SCH (09:00)
[2023-07-09] MEDS ORDERED: [UNRECOGNIZED DRUG - OTHER] PO SCH (09:00)
[2023-07-09] MEDS ORDERED: COLLAGENASE 30 GM OINTMENT TOP SCH (09:00)
[2023-07-09] MEDS ORDERED: DAPAGLIFLOZIN PO SCH (09:00)
[2023-07-09] MEDS: DAPAGLIFLOZIN PO SCH (09:01)
[2023-07-09] MEDS: METFORMIN HCL PO SCH (09:01)
[2023-07-09] MEDS: [UNRECOGNIZED DRUG - OTHER] PO SCH (09:01)
[2023-07-09] MEDS: MEDIHONEY 44 ML TOPICAL TUBE TOP SCH (09:02)
[2023-07-09 10:00] VITALS: O2SAT 96
--- NOTE | 2023-07-09 18:09 | P.PN ---
Subjective Date of Service: 07/09/23 Chief Complaint: L FOOT INFECTION Subjective: No new changes HERE FOR FOOT INFECTION. MRI DONE. I WILL CALL PATIENT. I ASKED FOR TERTIARY CARE FACILITY HE HAS COMPLEX FOOT INFECTION WITH SEPTIC ARTHRITIS. I EXPLAINED TO AND HIM BOTH. I TALKED TO HOPSITALIST AT [facility] FOR TRANSFER HE IS ACCEPTED TO GO TOMORROW. Review of Systems 10-point ROS is otherwise unremarkable Physical Examination - Vital Signs Temperature: 97.7 F Blood Pressure: 136/74 Pulse: 78 Respirations: 16 Pulse Ox (%): 93 - Physical Exam General: Oriented x3, Mild distress HEENT: Atraumatic, PERRLA, EOMI Neck: Supple, JVD not distended Respiratory: Clear to auscultation bilaterally, Normal air movement Cardiovascular: Regular rate/rhythm, Normal S1 S2 Gastrointestinal: Normal bowel sounds, No tenderness Musculoskeletal: No tenderness Integumentary: No rashes, Diabetic ulcer (L FOOT. FOUL SMELL. ULCER WITH MRI FU DONE. ) Neurological: Normal speech, Normal tone, Normal affect Lymphatics: No axilla or inguinal lymphadenopathy - Studies Microbiology Data (last 24 hrs): 07/07/23 18:30 Wound - Left Foot Gram Stain - Final Medications List Reviewed: Yes Assessment And Plan - Current Problems (Diagnosis) (1) Ulcer of left foot due to type 2 diabetes mellitus Current Visit: Yes Status: Acute Plan: IV VANCO IV ZOSYN CULTURE MRI AND DOPPLER PROGNOSIS POOR FOR THE FOOT MAY NEED HBO IF ABX DO NOT WORK. PLAN FOR SIX WEEKS OF ABX IF HE HAS OM. CHECK A1C MRI SHOWS OM AND ALSO POSSIBLE SEPTIC ARTHRITIS. WILL NEED TERTIARY CARE. HPI TO GO TO TERTIARY FACILITY FOR NEED OF ORTHO WITH SEPTIC ARTHRITIS EXPERTISE AND ID .
[2023-07-09] MEDS ORDERED: VANCOMYCIN 1.75 GM in NA CHLORIDE 0.9% 500 ML IVPB SCH (21:00)
[2023-07-09 21:21] VITALS: BP 157/100; TEMP 97.9
[2023-07-14] MEDS ORDERED: DULAGLUTIDE 3 MG/0.5 ML SQ SCH (09:00)
== END 2023-07-09 22:45 | disposition short-term general hospital (02) | DRG 638 ==
LOC: ER 14:30 → ERHOLD 18:51 → 4TH 23:24
PROVIDERS: ADMIT Internal Medicine; ATTEND Internal Medicine
DX: E11.69 Type 2 diabetes mellitus with other specified complication (principal); L03.116 Cellulitis of left lower limb; M00.9 Pyogenic arthritis, unspecified; M86.8X7 Other osteomyelitis, ankle and foot; E11.621 Type 2 diabetes mellitus with foot ulcer; E11.40 Type 2 diabetes mellitus with diabetic neuropathy, unspecified; L97.529 Non-pressure chronic ulcer of other part of left foot with unspecified severity; I10 Essential (primary) hypertension; E78.00 Pure hypercholesterolemia, unspecified; Z79.02 Long term (current) use of antithrombotics/antiplatelets; Z79.899 Other long term (current) drug therapy
CPT/HCPCS: 36415; 71045; 80048; 80053; 80202; 81003; 82947; 83036; 83605; 85025; 85610; 85730; 86140; 87040; 87070; 87077; 87186; 87205; 93005; 93925; 99285; J1650; J2543; J7040; J7050